=== PATIENT | male | born 1935 | race Caucasian/White ===

== ENCOUNTER 2016-06-02 12:07 | Day surgery (SDC) | payer OTHER, MEDICARE ==
[2016-06-02] MEDS ORDERED: NS 500 ML IV ONE (12:36)
[2016-06-02] MEDS ORDERED: MIDAZOLAM 2 MG/2 ML VIAL IVP ONE (12:36)
[2016-06-02] MEDS ORDERED: fentaNYL 100 MCG/2 ML INJ IVP ONE (12:36)
[2016-06-02] MEDS ORDERED: PROPOFOL 200 MG/20 ML VIAL IVP ONE (12:36)
--- NOTE | 2016-06-02 12:53 | CPEKG ---
Heart Rate: 78 RR Interval: 769 P-R Interval: 192 QRSD Interval: 162 QT Interval: 420 QTC Interval: 479 P [place]: 73 QRS [place]: -33 T Wave [place]: 124 EKG Severity - ABNORMAL ECG - EKG Impression: SINUS RHYTHM EKG Impression: LEFT BUNDLE BRANCH BLOCK Electronically Signed By: Anurag Grant 02-Jun-2016 19:36:47
== END 2016-06-02 14:04 | disposition home or self-care (01) ==
LOC: FIMAGING 12:07 → FCATH 14:04
PROVIDERS: ATTEND Internal Medicine Cardiovascular Disease
DX: I47.1 Supraventricular tachycardia (principal); Z53.8 Procedure and treatment not carried out for other reasons; R53.83 Other fatigue; R06.02 Shortness of breath; I25.10 Atherosclerotic heart disease of native coronary artery without angina pectoris; E78.5 Hyperlipidemia, unspecified; I44.7 Left bundle-branch block, unspecified; I48.92 Unspecified atrial flutter; J44.9 Chronic obstructive pulmonary disease, unspecified; I10 Essential (primary) hypertension; G47.33 Obstructive sleep apnea (adult) (pediatric); Z95.5 Presence of coronary angioplasty implant and graft; Z79.82 Long term (current) use of aspirin; Z79.1 Long term (current) use of non-steroidal anti-inflammatories (NSAID)

== ENCOUNTER → 2016-06-02 | Outpatient (CLI) | payer OTHER, MEDICARE | LOC: BHFA 11:15 | PROVIDERS: ATTEND Internal Medicine Interventional Cardiology | DX: I25.10 Atherosclerotic heart disease of native coronary artery without angina pectoris (principal); I10 Essential (primary) hypertension; I44.7 Left bundle-branch block, unspecified; I47.1 Supraventricular tachycardia ==

== ENCOUNTER 2016-06-18 14:31 | Inpatient (IN) | payer OTHER, MEDICARE ==
--- NOTE | 2016-06-18 14:45 | CPEKG ---
Heart Rate: 136 RR Interval: 441 QRSD Interval: 152 QT Interval: 372 QTC Interval: 560 QRS [place]: -50 T Wave [place]: 109 EKG Severity - ABNORMAL ECG - EKG Impression: A-FLUTTER/FIBRILLATION W/ COMPLETE AV BLOCK EKG Impression: LEFT BUNDLE BRANCH BLOCK Electronically Signed By: Zak Webster 18-Jun-2016 22:01:17
[2016-06-18] MEDS ORDERED: DILTIAZEM 25 MG/5 ML VIAL IVP ONE (14:52)
[2016-06-18] MEDS ORDERED: PROPOFOL 200 MG/20 ML VIAL ONE (14:58)
[2016-06-18 15:00] LABS: % IMMATURE GRANULYOCYTES 0.2 % (0.0-1.1); ABSOLUTE IMMATURE GRANULOCYTES 0.02 10^3/uL (0.00-0.10); ADD DIFF? NO; ADD MORPH? NO; ADD SCAN? NO; ATYPICAL LYMPHOCYTE FLAG 10 (0-99); FRAGMENT RBC FLAG 0 (0-99); HEMATOCRIT 52.8 % (40.0-51.0); HEMOGLOBIN 18.5 g/dL (13.7-17.5); LEFT SHIFT FLG 0 (0-99); LIPEMIA HEMOLYSIS FLAG 90 (0-99); MEAN CELL HEMOGLOBIN 32.2 pg (27.9-34.1); MEAN CELL VOLUME 91.8 fL (81.5-99.8); MEAN PLATELET VOLUME 9.2 fL (8.7-11.7); PLATELET CLUMPS FLAG 10 (0-99); PLATELET COUNT 167 10^3/uL (150-400); RED BLOOD CELL COUNT 5.75 10^6/uL (4.40-6.38); RED CELL DISTRIBUTION WIDTH 13.4 % (11.5-15.2)
[2016-06-18] MEDS ORDERED: KETAMINE 100 MG/10 ML SYR IVP ONE ×2 (15:02→15:53)
--- NOTE | 2016-06-18 15:12 | CPEKG ---
Heart Rate: 79 RR Interval: 759 P-R Interval: 180 QRSD Interval: 162 QT Interval: 440 QTC Interval: 505 P [place]: 61 QRS [place]: -39 T Wave [place]: 110 EKG Severity - ABNORMAL ECG - EKG Impression: SINUS RHYTHM EKG Impression: LEFT BUNDLE BRANCH BLOCK Electronically Signed By: Zak Webster 18-Jun-2016 22:01:17
[2016-06-18 15:14] LABS: INR 1.42 (0.83-1.16); PROTIME(PATIENT) 17.3 SEC (12.0-15.0)
[2016-06-18 15:15] LABS: APTT 35.5 SEC (23.0-38.0)
[2016-06-18] MEDS ORDERED: ADENOSINE 6 MG/2 ML VIAL ONE (15:17)
--- NOTE | 2016-06-18 15:19 | EDPHY ---
H & P Stated Complaint: irregular heartrate, scheduled for ablation with OZO Time Seen by Provider: 06/18/16 14:45 - Personal History Current Tetanus/Diphtheria Vaccine: Unsure Current Tetanus Diphtheria and Acellular Pertussis (TDAP): Unsure Tetanus Vaccine Date: unsure - Medical/Surgical History Hx Asthma: Yes Hx Chronic Respiratory Disease: No Hx Diabetes: No Hx Cardiac Disease: Yes Hx Renal Disease: No Hx Cirrhosis: No Hx Alcoholism: No Hx HIV/AIDS: No Hx Splenectomy or Spleen Trauma: No Other PMH: stents x4- mild emphysema- - Social History Smoking Status: Former smoker Constitutional: Initial Vital Signs Temperature (C) 36.7 C 06/18/16 14:36 Heart Rate 134 H 06/18/16 14:36 Respiratory Rate 15 06/18/16 14:36 Blood Pressure 109/73 06/18/16 14:36 O2 Sat (%) 92 06/18/16 14:36 O2 Delivery Mode [Post Room Air Procedure 1st] O2 Delivery Mode [Procedural Non-Rebreather Mask 4th] O2 Delivery Mode [Procedural Non-Rebreather Mask 3rd] O2 Delivery Mode [Procedural Non-Rebreather Mask 2nd] O2 Delivery Mode [Procedural Non-Rebreather Mask 1st] O2 Delivery Mode [.Immediate Non-Rebreather Mask Pre-Procedure] O2 Delivery Mode Nasal Cannula O2 (L/minute) [Post Procedure 15 1st] O2 (L/minute) [Procedural 4th] 15 O2 (L/minute) [Procedural 3rd] 15 O2 (L/minute) [Procedural 2nd] 15 O2 (L/minute) [Procedural 1st] 15 O2 (L/minute) [.Immediate Pre- 15 Procedure] O2 (L/minute) 2 Allergies/Adverse Reactions: No Known Allergies Allergy (Verified 06/18/16 14:36) Home Medications: Medication Instructions Recorded Rosuvastatin Calcium [Crestor 20mg 20 mg PO HS 10/27/11 (RX)] Zolpidem Tartrate [Ambien 10 mg] 2.5 - 5 mg PO HS 10/27/11 Metoprolol Succinate 25 mg PO DAILY06 12/10/12 Apixaban [Eliquis] 5 mg PO BID 10/14/15 Aspirin [Aspirin 81mg (*)] 81 mg PO DAILY 11/22/15 Mirtazapine [Remeron] 15 mg PO HS 06/02/16 Omeprazole [Prilosec 20 mg] 20 mg PO DAILY 06/02/16 Metoprolol Succinate [Metoprolol 12.5 mg PO HS 06/18/16 Succinate] Medical Decision Making ED Course/Re-evaluation: CHIEF COMPLAINT: Chest pain, dyspnea, rapid heart rate HISTORY OF PRESENT ILLNESS: The patient is an 81 y/o male arriving with his complaining of chest pain, dyspnea, and sensation of rapid heart rate beginning sometime this morning. He has a history of CAD, LBBB, paroxysmal atrial fibrillation and flutter and has experienced these episodes previously. He is scheduled for an ablation with Dr. Patton on 06/26/16, 8 days from now. His chest pain is located in his anterior left chest and associated with radiating right shoulder pain and exertional shortness of breath. REVIEW OF SYSTEMS: A 10 point review of systems was performed and is negative with the exception of the elements mentioned in the history of present illness. PHYSICAL EXAM: General Appearance: Alert, well hydrated, appropriate, and non-toxic appearing. Head: Atraumatic without scalp tenderness or obvious injury Eyes: Pupils equal, round, reactive to light and accommodation, EOMI, no trauma , no injection. Ears: Clear bilaterally, no perforation, normal landmarks Nose: Atraumatic, no rhinorrhea, clear. Throat: There is no erythema or exudates, no lesions, normal tonsils, mucus membranes moist. Neck: Supple, 2+ carotid upstroke, non-tender, no lymphadenopathy. Respiratory: No retractions, no distress, no wheezes, and no accessory muscle use. Lungs are clear to auscultation bilaterally. Cardiovascular: Tachycardic rate and rhythm, no murmurs, rubs, or gallops. Bilateral carotid, radial, dorsalis pedis, and posterior tibial pulses intact. Good capillary refill all extremities. Gastrointestinal: Abdomen is soft, non-tender, non-distended, no masses, no rebound, no guarding, no peritoneal signs. Musculoskeletal: Normal active ROM of all extremities, atraumatic. Neurological: Alert, appropriate, and interactive. The patient has normal DTRs and non-focal cranial nerves, motor, sensory, and cerebellar exam. Skin: No rashes, good turgor, no nodules on palpation. PAST MEDICAL HISTORY: CAD, LBBB, paroxysmal atrial fibrillation and atrial flutter, COPD, hyperlipidemia Meds include: metoprolol, digoxin, Eliquis PAST SURGICAL HISTORY: Scheduled for ablation on 06/26/[address] Patton, resection of bladder tumor via TURP SOCIAL HISTORY: at bedside. Veterinarian: Dr. Grant Prior medical records reviewed including ED visit 07/23/14 for similar symptoms. DIAGNOSTICS/PROCEDURES/CRITICAL CARE TIME: 1443: The 12 lead EKG was interpreted by myself. EKG shows atrial flutter with LBBB rate 136. See hard copy and/or "tracemaster" electronic copy for interpretation. Procedure: Conscious sedation. Indication: Cardioversion The patient is an appropriate candidate to tolerate procedural sedation. The patient's vitals signs and mental status are appropriate. The risks, benefits and alternatives of the sedation were discussed with the patient. The patient is ASA classification 1. The patient's Mallampati airway score was 1 and the patient did meet the 3-3-2 airway measurements. A time out was completed. The patient was sedated with 30mg IV Propofol and 30mg IV Ketamine. The patient was monitored with continuous pulse oximetry, angiography nurse and end tidal CO2. There were no complications and no significant hypoxemia. I performed both the sedation and the procedure. The total time I spent at the bedside during the procedural sedation was 20 minutes. The patient was examined after the procedural sedation and has returned to their pre-sedation baseline with normal vital signs and a normal examination. Procedure: Electrical Cardioversion. Indication: Unstable tachydysrhythmia. Risks, benefits, alternatives discussed with the patient and consent obtained. The patient was on a continuous eight section blower, with airway equipment at the bedside. The patient was on continuous pulse oximetry and passive CO2 monitor. The cardioversion was performed with 150 joules biphasic current. The cardioversion was initially successful, but patient later returned to rapid rhythm. The patient tolerated the procedure well with no complications. The procedure was performed by myself. 1511: The post conversion 12 lead EKG was interpreted by myself. Sinus rhythm rate 79 with LBBB. Similar compared to EKG dated 06/02/2016. See hard copy and/ or "tracemaster" electronic copy for interpretation. 1516: The 12 lead EKG was interpreted by myself. EKG shows wide complex tachycardia rate around 123. LBBB. See hard copy and/or "tracemaster" electronic copy for interpretation. Procedure: Electrical Cardioversion. Indication: Unstable tachydysrhythmia. Risks, benefits, alternatives discussed with the patient and consent obtained. The patient was on a continuous eight section blower, with airway equipment at the bedside. The patient was on continuous pulse oximetry and passive CO2 monitor. The cardioversion was performed with 150 joules biphasic current. The cardioversion was was initially successful, but patient later returned to rapid rhythm. The patient tolerated the procedure well with no complications. The procedure was performed by myself. 1519: The post conversion 12 lead EKG was interpreted by myself. Sinus rhythm rate 71. See hard copy and/or "tracemaster" electronic copy for interpretation. 1520: The 12 lead EKG was interpreted by myself. Atrial flutter rate 124 with LBBB. See hard copy and/or "tracemaster" electronic copy for interpretation. 1527: The 12 lead EKG was interpreted by myself. Sinus rhythm rate 66 with LBBB. See hard copy and/or "tracemaster" electronic copy for interpretation. I spent a total of 90 minutes of critical care time including but not limited to obtaining history, performing a physical exam, ordering interventions and the bedside monitoring of those interventions, collecting and interpreting tests and discussion with consultants but not including time spent performing procedures. DIFFERENTIAL DIAGNOSIS: The differential diagnosis for the patient's chest pain included but was not limited to unstable tachydysrhythmia, myocardial ischemia, pulmonary embolus, chest wall pain, pleural inflammation, and pulmonary infectious causes. MEDICAL DECISION MAKING: This is an 81 y/o male with an extensive cardiac history who presents with chest pain that radiates to his right shoulder, dyspnea, and rapid atrial flutter. He is scheduled for an ablation on 06/26/[address] Patton. He has a tachycardic rate on exam, but otherwise exam is unremarkable. Vitals on initial assessment: BP 90/50, HR 135. Due to continued symptoms and hypotension, he meets urgent cardioversion criteria with unstable tachydysrhythmia. Plan for conscious sedation and cardioversion. Will consult cardiology first. IV established. Labs drawn including CBC, CHEM, troponin, Mg, PTPTT. 1L IV NS administered. 1456: Consulted with Dr. Grant, patient's tung nut grower. He reports patient is on anticoagulation and agrees with my plan to cardiovert him now. The patient continues to have chest pain. 1504: BP 90/70. Continues to be symptomatic. 1507: 30mg IV Propofol and 30mg IV Ketamine administered for conscious sedation. 1508: Patient cardioverted with 150 joules biphasic synchronized current. 1509: 5mg IV Diltazem administered. HR in 80s. BP 117/81. 1511: Post conversion EKG shows sinus rhythm 79 with LBBB. 1514: Updated Dr. Grant on patient's condition. 1516: Patient returned to rapid rhythm rate 125, more narrow than previous tachycardia. BP now 73/43. 1518: Second cardioversion at 150 joules. HR 67. BP 109/70. 1520: Rate returned to 124. Plan for 150mg IV amiodarone. Dr. Grant updated. 1525: Will prepare for second conscious sedation in preparation for third cardioversion. 1526: Patient converted to sinus rhythm rate 71 with his baseline LBBB following amiodarone administration. BP around the 110s systolic. Third cardioversion and sedation deferred at this time. Dr. Grant paged. Patient will be placed on atrial fibrillation amiodarone drip protocol. 1535: Patient is awake and alert. His chest pain, dyspnea, and shoulder pain have resolved. Electrolytes including Mg are WNL. Troponin and BNP pending. 1540: BNP elevated at 1460. 1544: Spoke with Dr. Enrique, hospitalist. He accepts admission. 1555: Consulted with Dr. Peña, cardiology. He is in agreement with plan for admission. He will have Dr. Patton consult on patient tomorrow. - Data Points Laboratory Results: Laboratory Results 06/18/16 14:48 06/18/16 14:48 06/18/16 14:48 WBC 8.05 10^3/uL (3.80-9.50) RBC 5.75 10^6/uL (4.40-6.38) Hgb 18.5 H g/dL (13.7-17.5) Hct 52.8 H % (40.0-51.0) MCV 91.8 fL (81.5-99.8) MCH 32.2 pg (27.9-34.1) MCHC 35.0 g/dL (32.4-36.7) RDW 13.4 % (11.5-15.2) Plt Count 167 10^3/uL (150-400) MPV 9.2 fL (8.7-11.7) Neut % (Auto) 59.6 % (39.3-74.2) Lymph % (Auto) 30.1 % (15.0-45.0) [place] % (Auto) 7.0 % (4.5-13.0) Eos % (Auto) 2.1 % (0.6-7.6) Baso % (Auto) 1.0 % (0.3-1.7) Nucleat RBC Rel Count 0.0 % (0.0-0.2) Absolute Neuts (auto) 4.80 10^3/uL (1.70-6.50) Absolute Lymphs (auto) 2.42 10^3/uL (1.00-3.00) Absolute Monos (auto) 0.56 10^3/uL (0.30-0.80) Absolute Eos (auto) 0.17 10^3/uL (0.03-0.40) Absolute Basos (auto) 0.08 10^3/uL (0.02-0.10) Absolute Nucleated RBC 0.00 10^3/uL (0-0.01) Immature Gran % 0.2 % (0.0-1.1) Immature Gran # 0.02 10^3/uL (0.00-0.10) PT 17.3 H SEC (12.0-15.0) INR 1.42 H (0.83-1.16) APTT 35.5 SEC (23.0-38.0) Sodium 146 H mEq/L (134-144) Potassium 4.6 mEq/L (3.5-5.2) Chloride 105 mEq/L (97-110) Carbon Dioxide 28 mEq/l (22-31) Anion Gap 13 mEq/L (8-16) BUN 23 mg/dL (7-23) Creatinine 1.3 mg/dL (0.7-1.3) Estimated GFR 53 Glucose 130 H mg/dL (70-100) Calcium 9.8 mg/dL (8.5-10.4) Magnesium 2.1 mg/dL (1.6-2.3) Troponin I 0.013 ng/mL (0-0.034) NT-Pro-B Natriuret Pep 1460 H pg/mL (0-450) Medications Given: Discontinued Medications Diltiazem HCl (Cardizem 25 Mg/5 Ml Vial) 10 mg IVP EDNOW ONE Stop: 06/18/16 14:53 Last Admin: 06/18/16 15:15 Dose: 5 mg Amiodarone HCl (Amiodarone Hcl) 100 mls @ 600 mls/hr IV ONCE ONE Stop: 06/18/16 16:09 Last Admin: 06/18/16 16:13 Dose: Not Given Amiodarone HCl (Amiodarone Hcl) 100 mls @ 600 mls/hr IV EDNOW ONE Stop: 06/18/16 16:02 Last Admin: 06/18/16 15:20 Dose: 100 mls Sodium Chloride (Ns) 1,000 mls @ 0 mls/hr IV ONCE ONE PRN Reason: Wide Open Stop: 06/18/16 15:56 Last Admin: 06/18/16 15:02 Dose: 1,000 mls Ketamine HCl (Ketamine) 30 mg IVP EDNOW ONE Stop: 06/18/16 15:54 Last Admin: 06/18/16 15:02 Dose: 30 mg Propofol (Diprivan) 30 mg IVP EDNOW ONE Stop: 06/18/16 15:54 Last Admin: 06/18/16 15:02 Dose: 30 mg Departure - Departure Disposition: [facility] Inpatient Acute Clinical Impression: Chest pain, unstable dysrhythmia, Paroxysmal atrial flutter, Encounter for cardioversion procedure Condition: Fair Report Scribed for: Zak Webster Report Scribed by: Marta Lindsey Date of Report: 06/18/16 Time of Report: 15:24
--- NOTE | 2016-06-18 15:19 | CPEKG ---
Heart Rate: 123 RR Interval: 488 QRSD Interval: 156 QT Interval: 396 QTC Interval: 567 QRS [place]: -45 T Wave [place]: 109 EKG Severity - ABNORMAL ECG - EKG Impression: WIDE COMPLEX TACHYCARDIA EKG Impression: LEFT BUNDLE BRANCH BLOCK Electronically Signed By: Zak Webster 18-Jun-2016 22:01:17
[2016-06-18] MEDS ORDERED: AMIODARONE HCL 150 MG/100 ML BAG (1.5 MG/ML) IV ONE (15:21)
[2016-06-18] MEDS ORDERED: AMIODARONE HCL 150 MG/3 ML VIAL ONE (15:22)
[2016-06-18 15:24] LABS: ANION GAP 13 mEq/L (8-16); CALCIUM 9.8 mg/dL (8.5-10.4); CARBON DIOXIDE 28 mEq/l (22-31); CHLORIDE 105 mEq/L (97-110); CREATININE 1.3 mg/dL (0.7-1.3); GLOMERULAR FILTRATION RATE 53; GLUCOSE 130 mg/dL (70-100); MAGNESIUM 2.1 mg/dL (1.6-2.3); POTASSIUM 4.6 mEq/L (3.5-5.2); SODIUM 146 mEq/L (134-144)
--- NOTE | 2016-06-18 15:30 | CPEKG ---
Heart Rate: 71 RR Interval: 845 P-R Interval: 212 QRSD Interval: 170 QT Interval: 436 QTC Interval: 474 P [place]: 66 QRS [place]: -38 T Wave [place]: 122 EKG Severity - ABNORMAL ECG - EKG Impression: SINUS RHYTHM EKG Impression: LEFT BUNDLE BRANCH BLOCK Electronically Signed By: Zak Webster 18-Jun-2016 22:01:17
--- NOTE | 2016-06-18 15:31 | CPEKG ---
Heart Rate: 124 RR Interval: 484 QRSD Interval: 158 QT Interval: 396 QTC Interval: 569 QRS [place]: -41 T Wave [place]: 108 EKG Severity - ABNORMAL ECG - EKG Impression: A-FLUTTER/FIBRILLATION W/ COMPLETE AV BLOCK EKG Impression: LEFT BUNDLE BRANCH BLOCK Electronically Signed By: Zak Webster 18-Jun-2016 22:01:17
--- NOTE | 2016-06-18 15:33 | CPEKG ---
Heart Rate: 70 RR Interval: 857 P-R Interval: 224 QRSD Interval: 168 QT Interval: 428 QTC Interval: 462 P [place]: 22 QRS [place]: -44 T Wave [place]: 119 EKG Severity - ABNORMAL ECG - EKG Impression: SINUS RHYTHM EKG Impression: FIRST DEGREE AV BLOCK EKG Impression: LEFT BUNDLE BRANCH BLOCK Electronically Signed By: Zak Webster 18-Jun-2016 22:01:17
[2016-06-18 15:35] LABS: TROPONIN I 0.013 ng/mL (0-0.034)
[2016-06-18] MEDS ORDERED: PROPOFOL 200 MG/20 ML VIAL IVP ONE (15:53)
[2016-06-18] MEDS ORDERED: AMIODARONE HCL 100 ML IV ONE (15:53)
[2016-06-18] MEDS ORDERED: NS 1,000 ML IV ONE (15:55)
[2016-06-18] MEDS ORDERED: AMIODARONE A.FIB-6HR INFSN (ORDER 2/3) IV ONE (16:00)
[2016-06-18] MEDS ORDERED: AMIODARONE HCL 200 ML IV ONE (16:00)
[2016-06-18] MEDS ORDERED: AMIODARONE A.FIB-LOAD DOSE(ORDER 1/3) IV ONE (16:00)
[2016-06-18] MEDS ORDERED: ONDANSETRON 4 MG/2 ML VIAL IVP PRN (17:48)
[2016-06-18] MEDS ORDERED: ACETAMINOPHEN 325 MG TAB PO PRN (17:48)
[2016-06-18] MEDS ORDERED: ONDANSETRON DISINTEGRATING 4 MG TAB PO PRN (17:48)
--- NOTE | 2016-06-18 18:17 | GHP ---
[f rep st] HISTORY AND PHYSICAL DATE OF ADMISSION: 06/18/2016 CHIEF COMPLAINT: Tachycardia and known atrial fibrillation. HISTORY OF PRESENT ILLNESS: This is an 81-year-old male with a known history of paroxysmal atrial fi brillation. He is actually scheduled for an ablation next week. He usually sees Dr. Grant as his [facility] tie man. He presented to the emergency department today with heart beats and tachycardia. This was starting this morning. He was also having some chest pain and in his right sh oulder. He has also had some shortness of breath. In the emergency department his heart rate was in the 130s, in the 60s. In discussion with cardiology, he was cardioverted. He required a couple shocks. He then was given amiodarone. He has been on anticoagulation. Currently patient is feeling well. His right shoulder pain is now resolved. He denies any chest pain or shortness of br eath. REVIEW OF SYSTEMS: A 10-point review of systems was obtained and negative. PAST MEDICAL HISTORY: 1. Coronary artery disease, status post a couple of stents. 2. Paroxysmal atrial fibrillation, as above. 3. Chronic obstructive pulmonary disease. 4. History of left bundle branch block. 5. Hypertension. 6. Obstructive sleep apnea. MEDICATIONS: Reviewed. SOCIAL HISTORY: No smoking or alcohol. FAMILY HISTORY: Both parents are . PHYSICAL EXAM: VITAL SIGNS: Afebrile, blood pressure is 112/71, heart rate 62, oxygen saturation 95 % on room air. GENERAL: The patient is well developed, no apparent distress. HEENT: Nonicteric sc lerae. Extraocular movements intact. Moist mucous membranes. NECK: Supple. No thyromegaly. LUNG S: Good effort. Clear to auscultation bilaterally. CARDIOVASCULAR: Regular rate and rhythm. No m urmurs, gallops. ABDOMEN: Positive bowel sounds, soft, nontender, nondistended, no hepatosplenomega ly. EXTREMITIES: No clubbing, cyanosis, or edema. Skin: Without rash, dry and intact. NEUROLOGIC : Alert and oriented x3. Moving all 4 extremities equally. PSYCH: Normal mood and affect. LABS: CBC is normal although hemoglobin is high at 18. Sodium 146, potassium 4.6, creatinine 1.3. Troponin 0.013 prior to his cardioversion. EKG personally reviewed and interpreted. Initial one gulshan wed atrial flutter with a heart rate of 136. EKG done after ablations showed left branch block and a normal sinus rhythm. ASSESSMENT: An 81-year-old male with a history of paroxysmal atrial fibrillation whose symptoms were uncontrolled prior, scheduled for ablation, presenting with unstable atrial fibrillation status post cardioversion in the emergency department. 1. Paroxysmal atrial fibrillation. Patient continues on statins. We will continue with amiodarone drip. Make the patient n.p.o. after midnight for possible ablation. 2. History of coronary artery disease. This appears stable. 3. Chronic obstructive pulmonary disease. The patient's hemoglobin is a little bit high and I wonde r if there may be an element of untreated other obstructive sleep apnea or chronic obstructive pulmon meenakshi disease. We will defer this to his primary doctor. /[id number]/MODL
[2016-06-18] MEDS: MIRTAZAPINE 15 MG TAB PO SCH (20:23)
[2016-06-18] MEDS: ROSUVASTATIN CALCIUM 20 MG TAB PO SCH (20:23)
[2016-06-18] MEDS: APIXABAN 5 MG TAB PO SCH (20:23)
[2016-06-18] MEDS: METOPROLOL SUCCINATE XR 25 MG TAB PO SCH (20:23)
[2016-06-18] MEDS ORDERED: AMIODARONE A.FIB-18HR INFSN (ORDER 3/3) IV ONE (22:00)
[2016-06-18] MEDS ORDERED: AMIODARONE HCL 540 MG in D5W 300 ML IV ONE (22:00)
[2016-06-18] MEDS: ZOLPIDEM TARTRATE 5 MG TAB PO SCH (22:00)
[2016-06-19 05:57] LABS: % IMMATURE GRANULYOCYTES 0.5 % (0.0-1.1); ABSOLUTE IMMATURE GRANULOCYTES 0.03 10^3/uL (0.00-0.10); ADD DIFF? NO; ADD MORPH? NO; ADD SCAN? NO; ATYPICAL LYMPHOCYTE FLAG 0 (0-99); FRAGMENT RBC FLAG 0 (0-99); HEMATOCRIT 43.9 % (40.0-51.0); HEMOGLOBIN 14.7 g/dL (13.7-17.5); LEFT SHIFT FLG 0 (0-99); LIPEMIA HEMOLYSIS FLAG 80 (0-99); MEAN CELL HEMOGLOBIN 31.1 pg (27.9-34.1); MEAN CELL HEMOGLOBIN CONCENTR. 33.5 g/dL (32.4-36.7); MEAN CELL VOLUME 92.8 fL (81.5-99.8); MEAN PLATELET VOLUME 9.5 fL (8.7-11.7); PLATELET CLUMPS FLAG 10 (0-99); PLATELET COUNT 119 10^3/uL (150-400); RED BLOOD CELL COUNT 4.73 10^6/uL (4.40-6.38); RED CELL DISTRIBUTION WIDTH 13.6 % (11.5-15.2)
[2016-06-19 06:01] LABS: ALANINE AMINOTRANSFERASE 31 IU/L (21-72); ALBUMIN 3.3 g/dL (3.5-5.0); ALKALINE PHOSPHATASE 57 IU/L (38-126); ANION GAP 7 mEq/L (8-16); ASPARTATE AMINOTRANSFERASE 28 IU/L (17-59); BILIRUBIN,TOTAL 0.7 mg/dL (0.1-1.4); CALCIUM 8.8 mg/dL (8.5-10.4); CARBON DIOXIDE 24 mEq/l (22-31); CHLORIDE 110 mEq/L (97-110); CREATININE 1.2 mg/dL (0.7-1.3); GLOMERULAR FILTRATION RATE 58; GLUCOSE 105 mg/dL (70-100); MAGNESIUM 2.1 mg/dL (1.6-2.3); POTASSIUM 4.2 mEq/L (3.5-5.2); SODIUM 141 mEq/L (134-144); TOTAL PROTEIN 6.6 g/dL (6.3-8.2)
[2016-06-19] MEDS: METOPROLOL SUCCINATE XR 25 MG TAB PO SCH ×2 (06:54→20:50)
[2016-06-19] MEDS: APIXABAN 5 MG TAB PO SCH (10:53)
--- NOTE | 2016-06-19 10:59 | ECHO ---
[id number] + + [id number] : : [place] [address] : : [phone] + + Adult Echocardiographic Report + + :Name: BRIANNE BROWN BStudy Date: 06/19/2016 09:57 AM : : Hospital Admission Number: [id number] : :: 1935 Gender: Male Height: 70 in : :Age: 81 yrs Race: WH Weight: 171 lb : :Reason For Study: Eval LV Fx : : BSA: 2.0 meters2: :History: Unstable angina, New onset A-Fib/flutter. : + + MMode/2D Measurements & Calculations IVSd: 0.94 cm LVIDd: 4.6 cm FS: 21.2 % Ao root diam: LVPWd: 1.1 cm LVIDs: 3.6 cm EDV(Teich): 98.0 ml 3.3 cm ESV(Teich): 55.7 ml ACS: 1.5 cm EF(Teich): 43.1 % LA dimension: 3.6 cm LVOT diam: 2.1 cmLVLd ap4: 7.2 cm SV(MOD-sp4): LA A4 area: LVOT area: EDV(MOD-sp4): 40.0 ml 23.3 cm2 3.5 cm2 75.0 ml LVLs ap4: 6.9 cm ESV(MOD-sp4): 35.0 ml EF(MOD-sp4): 53.3 % Normal Measurement Values: + + :LVIDd (3.5-5.7cm) IVSd (0.6-1.1cm) LVPWd (0.6-1.1cm) Aortic Root (2.0-3.7cm)Left Atrium (1.5-4.0cm): :LV Vol(d) (76-115ml) LV Vol(s) (29-48ml) Ejec Fraction (50-65%)PV Shmuel (0.6- 1.2m/s) TV Shmuel (0.4-1.0m/s) : :MV E Shmuel (0.8-1.0m/s)MV A Shmuel (0.3-1.0m/s)LVOT Shmuel (0.7-1.2m/s) Asc Ao Shmuel ( 0.9-1.8m/s) : + + Doppler Measurements & Calculations MV E max shmuel: Ao mean P.9 mmHgLV V1 max: SV(LVOT): 44.9 cm/sec Ao V2 mean: 73.1 cm/sec 56.8 ml MV A max shmuel: 94.4 cm/sec LV V1 max P.2 cm/sec Ao V2 VTI: 26.2 cm 2.1 mmHg MV E/A: 0.73 ARMIN(I,D): 2.2 cm2 LV V1 mean P.2 mmHg LV V1 mean: 50.7 cm/sec LV V1 VTI: 16.4 cm PA V2 max: TR max shmuel: 115.4 cm/sec 247.0 cm/sec PA max P.3 mmHg TR max P.4 mmHg RAP systole: 5.0 mmHg RVSP(TR): 29.4 mmHg Left Ventricle The left ventricle is normal in size. There is normal left ventricular wall thickness. Ejection Fraction = 30-35%. There is Doppler evidence for diastolic dysfunction. There is mid inferoseptal to apical septal dyskinesis, there is basilar anterolateral and basilar inferolateral. Right Ventricle The right ventricle is normal in size and function. Atria The left atrium is mildly dilated. Right atrial size is normal. Mitral Valve The mitral valve is normal in structure and function. There is no evidence of mitral valve prolapse. There is no mitral valve stenosis. There is no mitral regurgitation noted. Tricuspid Valve There is trace tricuspid regurgitation. Right ventricular systolic pressure is normal. Aortic Valve The aortic valve opens well. There is no aortic stenosis. Mild aortic regurgitation. Pulmonic Valve The pulmonic valve is normal in structure and function. There is no pulmonic valvular regurgitation. Great Vessels The aortic root is normal size. Pericardium/Pleural There is no pericardial effusion. Conclusion A complete two-dimensional transthoracic echocardiogram was performed (2D, M-mode, Doppler and color flow Doppler). Ejection Fraction = 30-35%. There is Doppler evidence for diastolic dysfunction. There is mid inferoseptal to apical septal dyskinesis, there is basilar anterolateral and basilar inferolateral. The right ventricle is normal in size and function. The left atrium is mildly dilated. Right atrial size is normal. The mitral valve is normal in structure and function. There is trace tricuspid regurgitation. Right ventricular systolic pressure is normal. Mild aortic regurgitation. There is no pericardial effusion. Final Reading Physician: Ally Olguin signed on 06/19/2016 10:59 AM Ordering Physician: Terry Bush Performed By: Adama Hernández, JULIAN
[2016-06-19] MEDS ORDERED: TEMAZEPAM 15 MG CAP PO PRN (11:00)
[2016-06-19] MEDS: PANTOPRAZOLE SODIUM 40 MG TAB PO SCH (11:20)
[2016-06-19] MEDS: ASPIRIN 81 MG CHEWABLE TAB PO SCH (11:20)
[2016-06-19] MEDS: ENOXAPARIN 80 MG/0.8 ML SYR SC SCH ×2 (11:20→20:49)
--- NOTE | 2016-06-19 12:44 | GCON ---
[f rep st] CONSULTATION CARDIOLOGY CONSULTATION REASON FOR CONSULTATION: Atrial flutter with rapid ventricular response requiring cardioversion in the emergency department. HISTORY OF PRESENT ILLNESS: The patient has a long cardiac history, including coronary artery disease, with previous PCI in 1999 and 2005, most recent with PCI of the circumflex, ischemic cardiomyopathy with known ejection fraction of 45% based off the most recent echocardiogram in January 2011, COPD, hypertension, hyperlipidemia, left bundle branch block, obstructive sleep apnea , and more recently having runs of paroxysmal supraventricular tachycardia, in which he was scheduled to undergo cardiac electrophysiology procedure with ablation on June 26, 2016. The patient is reporting yesterday afternoon, soon after walking, he noticed that his heart rate took off extremely fast, became somewhat short of breath, reporting mild chest pressure. He had recently been taken off his digoxin in preparation for his upcoming electrophysiology study. Due to these new symptoms, he became quite concerned, and came to the emergency department for further evaluation. Upon arrival, he was noted to have initial heart rate at around 135 beats per minute. He was noted to be mildly hypotensive with blood pressure of 90/50. Emergency department physician did call Dr. Grant, who is the patient's regular stair builder, and it was decided that the patient should go under urgent cardioversion. Initially, it was tried with 150 joules biphasic. Unfortunately , that did not convert the 1st time. The patient was given IV amiodarone, and by the 3rd cardioversion, the patient was able to be converted back to sinus rhythm. He was placed up on the telemetry overnight, on an IV amiodarone drip. He has been noted to remain in sinus rhythm with occasional premature ventricular contractions. He reports he has had no further episodes of chest pain or pressure. His initial electrocardiogram upon emergency department admission showed atrial flutter with RVR. The patient reports prior 2 episodes. He has been in his normal state health. He has been prepping to go for his electrophysiology procedure, with medication changes as mentioned above , he denies of any recent fevers, chills, or night sweats. He has not noticed any significant decrease in exercise tolerance. It is noted that he was admitted to [facility] [address] [facility]. At that time, he was in SVT with RVR in which he was reporting chest pressure. By the time he arrived to the cardiovascular center, he had spontaneously converted back to sinus rhythm, requiring no cardioversion. It was noted that he was having chest pain at that time. Patient denies of any orthopnea, PND, edema, near-syncope, but lightheadedness with episodes. Denies of any symptoms suggestive of TIA or CVA. Denies any bleeding issues, is on chronic Eliquis. It has been noted off his medical records that his last echocardiogram in which only the ejection fraction was noted, was 45%, and that was January 2011. The patient's most recent nuclear stress test was done in February 2015, which noted that he had a small-sized moderate in intensity, fixed but partially reversible mid to distal deficit consistent with billy-infarct ischemia. His initial troponin in to the hospital was 0.013. His proBNP was 1460. PAST MEDICAL HISTORY: As mentioned above, CAD with previous PCI, most recent circumflex in 2010, hypertension, hyperlipidemia, paroxysmal atrial fibrillation , paroxysmal atrial flutter, paroxysmal supraventricular tachycardia, chronic obstructive pulmonary disease, long history of left bundle branch block. PAST SURGICAL HISTORY: Cardiac percutaneous coronary interventions, most recent 2010. FAMILY HISTORY: Patient reports no premature coronary artery disease. SOCIAL HISTORY: Patient is . He is a former smoker, he occasionally uses alcohol. Denies any illicit drug use. ALLERGIES: No known drug allergies. REVIEW OF SYSTEMS: A 10-point review of systems done on this patient all negative except as mentioned above. PHYSICAL EXAMINATION: GENERAL APPEARANCE: Medium built, well-groomed, male. He is alert and orientated to person, place, time, and situation. Appears to be under no acute distress. VITAL SIGNS: Currently, blood pressure 128/76, heart rate of 56, sinus bradycardia on the monitor, respirations 12, saturation 93% on room air, temperature 36.3 degrees Celsius. HEENT: Head is normocephalic. Lips and tongue are pink and moist with no signs of cyanosis, conjunctivae pink. NECK: Trachea is midline, +2 carotid pulses bilateral, no auscultated bruits, no jugular vein distention. ABDOMEN: Soft, nontender, bowel sounds x4 quadrants. No organomegaly and no palpable masses. SKIN: [place], warm, dry. No cyanosis, no clubbing. No peripheral edema. VASCULAR: +2 carotids bilateral, +2 radials bilateral. Noted normal Randall's test on right hand. +2 posterior tibial pulses bilateral. NEURO: Cranial nerves 2-12 grossly intact. MEDICATIONS: At home: 1. Metoprolol succinate 25 mg p.o. daily. 2. Aspirin 81 mg daily. 3. Eliquis 5 mg p.o. twice daily. 4. Remeron 15 mg p.o. at bedtime. 5. Metoprolol succinate 12.5 mg q.p.m. 6. Crestor 20 mg p.o. at bedtime. 7. Omeprazole 20 mg p.o. daily. 8. Ambien to 5 mg p.o. bedtime p.r.n. LABORATORY STUDIES: Current laboratory studies this morning showed WBC of 6.11 , hematocrit of 14.7, hematocrit 43.9, platelet count 119. Sodium 141, potassium 4.2, chloride 110, CO2 of 24, BUN 24, creatinine 1.2, glucose 105, calcium 8.8, magnesium 2.1, AST 28, ALT 31. Troponin on admission was 0.013, repeated troponin this morning was 0.120. ProBNP 1460. Total protein 6.6, albumin 3.3. Initial electrocardiogram appears to be atrial flutter with RVR with left bundle branch block. Electrocardiogram dated June 18, 2016 at 3:19 p.m. shows sinus rhythm with left bundle branch block. Echocardiogram done this morning shows EF of 30% to 35%. Evidence of diastolic dysfunction, mid inferior septal to apical septal dyskinesis with basilar anterior lateral and basilar inferior lateral akinesis. RV is normal size and function. LA is mildly dilated, trace TR, RVSP within normal limits, mild AI. ASSESSMENT AND PLAN: 1. Paroxysmal atrial flutter: Patient in paroxysmal atrial flutter last evening, noted to have chest pressure with hypotension. Three tempted cardioversions, which returned to spontaneous sinus rhythm with amiodarone loading. He has been on amiodarone drip, and continued on beta-blockers, has recently had his digoxin discontinued in preparation for electrophysiology study. I have spoken with Dr. Patton, he will see the patient later today, but potentially will need to hold off on doing EP procedure for 1 month post cardioversion due to not wanting to interrupt anticoagulation due to the risk of possible thrombotic event, especially within the first [address] cardio[address]. Per Dr. Patton's request, I have discontinued the amiodarone. We will continue him on current dose of beta-elida of metoprolol succinate. As for anticoagulation, he had been on his Eliquis. Patient will potentially need cardiac catheterization. Will discontinue Eliquis today, and start him on Lovenox at 1 mg/kg. 2. Coronary artery disease, with chest pressure: Patient was in atrial flutter with rapid ventricular response and 2 weeks ago went into PSVT, reporting episodes of midsternal chest pressure with radiation up to the right neck. He is known to have previous stents, initial troponin was negative, elevated troponin today questioning if this is due to cardiac, questioning elevated troponin to either cardiac ischemia or cardioversion. Echocardiogram showing wall motion abnormality with decreased ejection fraction from previous echocardiogram. Patient with known abnormal nuclear MPI study February 2015. After discussing with Dr. Robles and Dr. Patton, it is felt best that the patient be further evaluated for cardiac ischemia, will plan for him to undergo coronary catheterization. Due to him being on anticoagulation, we will hold his Eliquis today as mentioned above and start him on Lovenox with last dose tonight at 9:00 p.m., plan for cardiac catheterization tomorrow to be done by Dr. Robles via the right radial approach to help eliminate bleeding possibility as much as possible. Patient will continue on current anti-platelet therapy of aspirin. He has sublingual nitroglycerin to use. If he develops further chest pain at rest, would consider moving cardiac catheterization up to more of an urgent response. Continue him on current beta blockage as mentioned above. 3. Hypercholesterolemia: Patient noted history of coronary artery disease, currently on Crestor, will have him get a fasting lipid panel as stated above. 4. Ischemic cardiomyopathy: Recent echocardiogram showing ejection fraction 30 % to 35%. This is down from previous echocardiogram, with noted ejection fraction of 45%. Continue him on metoprolol succinate, potentially patient should be started on MILADIS inhibitor, but will hold off at this time due to recent episode of hypotension with atrial fibrillation with rapid ventricular response, this could potentially be decided post catheterization or an outpatient setting. 5. Chronic obstructive pulmonary disease: Patient reports no shortness of breath, his oxygen saturation within normal limits. He is being followed also by Internal Medicine, Hospitalist Service. Thank you for this consultation. We will be glad to follow along with you. /[id number]/MODL MTDD
--- NOTE | 2016-06-19 17:20 | HOSPPROG ---
Hospitalist Progress Note Assessment/Plan: DIAGNOSIS: # Rapid atrial fibrillation recurrence, intermittent # Chest pain #Elevated cardiac troponin # New decrease in left ventricular ejection fraction on echocardiogram to 35% in addition to his atrial fibrillation are certainly concerned about the possibility of coronary artery disease be involved at this point. In addition as the patient has converted from AFib to normal sinus rhythm, Dr. Patton is concerned about taking him off of anticoagulation until he is anticoagulated for least another month. The plan therefore will be to proceed with coronary angiography and deal with his coronary issues if any, and keep him on anticoagulation and rate control and have him come back in for ablation in 1 month. I have reviewed his case in detail with Terry Bush and Julian Patton from Cardiology today SUBJECTIVE: patient feels much better today without any palpitations chest pain or shortness of breath OBJECTIVE Vitals reviewed: stable with no fever Exam: alert oriented skin warm dry color ok resps not labored lungs clear BSs heart regular abd soft nondistended nontender, bowel sounds present limbs warm, no edema iv site ok Objective: Vital Signs Temp Pulse Resp BP Pulse Ox 36.3 C 58 L 16 116/69 90 L 06/19/16 16:35 06/19/16 16:35 06/19/16 16:35 06/19/16 16:35 06/19/16 16:35 Laboratory Results 06/19/16 04:00 06/19/16 04:00 06/18/16 06/19/16 06/20/16 06:59 06:59 06:59 Intake Total 1616 240 Balance 1616 240 PT 17.3 SEC (12.0-15.0) H 06/18/16 14:48 INR 1.42 (0.83-1.16) H 06/18/16 14:48 ICD10 Worksheet Patient Problems: Problems Problem Status Diagnosed Chest pain Acute Encounter for cardioversion procedure Acute Paroxysmal atrial flutter Acute
[2016-06-19] MEDS: ROSUVASTATIN CALCIUM 20 MG TAB PO SCH (20:50)
[2016-06-19] MEDS: MIRTAZAPINE 15 MG TAB PO SCH (20:50)
[2016-06-19] MEDS: ZOLPIDEM TARTRATE 5 MG TAB PO SCH (21:42)
[2016-06-20] MEDS ORDERED: NS 1,000 ML IV ONE (06:00)
[2016-06-20] MEDS ORDERED: NITROGLYCERIN 0.4 MG BTL SL PRN (06:00)
[2016-06-20 06:19] LABS: ANION GAP 9 mEq/L (8-16); CALCIUM 8.8 mg/dL (8.5-10.4); CARBON DIOXIDE 24 mEq/l (22-31); CHLORIDE 111 mEq/L (97-110); CHOLESTEROL 119 mg/dL (140-220); CHOLESTEROL/HDL RATIO 4.58 RATIO (1.00-4.97); CREATININE 1.1 mg/dL (0.7-1.3); GLOMERULAR FILTRATION RATE > 60; GLUCOSE 113 mg/dL (70-100); HIGH DENSITY LIPOPROTEIN 26 mg/dL (40-65); LDL/HDL RATIO 1.62 RATIO (1.00-3.64); LOW DENSITY LIPOPROTEIN 42 mg/dL (80-100); MAGNESIUM 1.9 mg/dL (1.6-2.3); NON-HIGH DENSITY LIPOPROTEIN 93 mg/dL (90-129); POTASSIUM 4.3 mEq/L (3.5-5.2); SODIUM 144 mEq/L (134-144); TRIGLYCERIDE 257 mg/dL (40-150); VERY LOW DENSITY LIPOPROTEINS 51 mg/dL (8-25)
[2016-06-20 06:58] LABS: % IMMATURE GRANULYOCYTES 0.4 % (0.0-1.1); ABSOLUTE IMMATURE GRANULOCYTES 0.03 10^3/uL (0.00-0.10); ADD DIFF? NO; ADD MORPH? NO; ADD SCAN? NO; ATYPICAL LYMPHOCYTE FLAG 0 (0-99); FRAGMENT RBC FLAG 10 (0-99); HEMATOCRIT 44.7 % (40.0-51.0); HEMOGLOBIN 15.2 g/dL (13.7-17.5); LEFT SHIFT FLG 0 (0-99); LIPEMIA HEMOLYSIS FLAG 90 (0-99); MEAN CELL HEMOGLOBIN 31.4 pg (27.9-34.1); MEAN CELL VOLUME 92.4 fL (81.5-99.8); MEAN PLATELET VOLUME 9.5 fL (8.7-11.7); PLATELET CLUMPS FLAG 10 (0-99); PLATELET COUNT 138 10^3/uL (150-400); RED BLOOD CELL COUNT 4.84 10^6/uL (4.40-6.38); RED CELL DISTRIBUTION WIDTH 13.4 % (11.5-15.2)
[2016-06-20] MEDS: METOPROLOL SUCCINATE XR 25 MG TAB PO SCH ×2 (07:17→21:21)
[2016-06-20] MEDS ORDERED: diphenhydrAMINE 25 MG CAP PO ONE ×2 (08:00→11:01)
[2016-06-20] MEDS ORDERED: DIAZEPAM 5 MG TAB ONE (08:01)
[2016-06-20] MEDS ORDERED: FAMOTIDINE 20 MG TAB ONE (08:01)
[2016-06-20 08:07] LABS: APTT 38.3 SEC (23.0-38.0); INR 1.26 (0.83-1.16); PROTIME(PATIENT) 15.8 SEC (12.0-15.0)
[2016-06-20] MEDS ORDERED: LIDOCAINE 1% 30 ML SDV ONE (08:38)
[2016-06-20] MEDS ORDERED: fentaNYL 100 MCG/2 ML INJ ONE (08:38)
[2016-06-20] MEDS ORDERED: MIDAZOLAM 2 MG/2 ML VIAL ONE (08:38)
[2016-06-20] MEDS ORDERED: IOPAMIDOL (ISOVUE 370) 100 ML BTL IV ONE (08:40)
[2016-06-20] MEDS ORDERED: VERAPAMIL 5 MG/2 ML VIAL ONE (08:49)
[2016-06-20] MEDS ORDERED: HEPARIN 10,000 UNIT/10 ML MDV ONE (08:49)
--- NOTE | 2016-06-20 08:52 | SOAPPROG ---
ZAID Progress Note Assessment/Plan: Assessment: 1. Coronary artery disease 2. Left bundle-branch block 3.Supraventricular arrhythmia Plan: 81-year-old male who was scheduled for an ablation procedure next week for supraventricular tachycardia versus atrial flutter. I saw him yesterday, June 19. He presents with recurrent episodes, these have caused chest discomfort. He did undergo cardioversion x2, was placed on short-term amiodarone which has been discontinued. He had a mildly abnormal myocardial perfusion stress test last year. Now with anginal pain with tachycardia, further evaluation of coronary disease indicated. He will see my partner Dr. Cassius Robles and likely will need coronary angiography. I have discussed his case with the patient's rn social services Dr. Anurag Grant who agrees with this plan. We will plan on proceeding with his ablation next week. Given that he underwent a cardioversion this week, I do not want to take him off anticoagulation for extended periods, he will be placed on Lovenox 1 milligram/ kilogram subcu twice daily 12 hours after stopping his Eliquis. Last dose of Lovenox will be 12 hours prior to the procedure. He understands the risks of procedure. These were discussed with him in clinic previously. Metoprolol will be stopped 5 days prior to the procedure. Digoxin has already been discontinued. 06/20/16 08:49 Subjective: 81-year-old male, known to me from outpatient setting, presented with wide complex tachycardia which is consistent with either supraventricular tachycardia or atrial flutter with aberrant conduction to the ventricles. He has underlying left bundle branch block. Objective: Vital Signs Temp Pulse Resp BP Pulse Ox 36.4 C 61 16 133/72 H 92 06/19/16 23:14 06/20/16 07:23 06/20/16 07:23 06/20/16 07:23 06/20/16 07:23 Laboratory Results 06/20/16 03:55 06/20/16 03:55 06/18/16 06/19/16 06/20/16 11:59 11:59 11:59 Intake Total 1751 790 Balance 1751 790 PT 15.8 SEC (12.0-15.0) H 06/20/16 03:55 INR 1.26 (0.83-1.16) H 06/20/16 03:55 - Time Spent With Patient Time Spent With Patient: 40 minutes, more than 50% counseling. ICD10 Worksheet Patient Problems: Problems Problem Status Onset Chest pain Acute Paroxysmal atrial flutter Acute Encounter for cardioversion procedure Acute
[2016-06-20] MEDS ORDERED: ASPIRIN EC 325 MG TAB PO ONE (09:43)
[2016-06-20] MEDS ORDERED: DIAZEPAM 5 MG TAB PO ONE (11:01)
--- NOTE | 2016-06-20 11:14 | CPEKG ---
Heart Rate: 58 RR Interval: 1034 P-R Interval: 216 QRSD Interval: 170 QT Interval: 500 QTC Interval: 492 P [place]: 28 QRS [place]: -56 T Wave [place]: 96 EKG Severity - ABNORMAL ECG - EKG Impression: SINUS RHYTHM EKG Impression: LEFT BUNDLE BRANCH BLOCK Electronically Signed By: Julian Patton 20-Jun-2016 12:04:17
[2016-06-20] MEDS ORDERED: BIVALIRUDIN 250 MG/5 ML VIAL IV ONE (12:36)
[2016-06-20] MEDS ORDERED: CLOPIDOGREL BISULFATE 75 MG TAB ONE (12:57)
[2016-06-20] MEDS ORDERED: ATROPINE SULFATE 1 MG/10 ML SYR IVP PRN (13:30)
[2016-06-20] MEDS ORDERED: CLOPIDOGREL BISULFATE 75 MG TAB PO ONE (13:30)
[2016-06-20] MEDS: ASPIRIN 81 MG CHEWABLE TAB PO SCH (13:32)
[2016-06-20] MEDS: PANTOPRAZOLE SODIUM 40 MG TAB PO SCH (13:32)
--- NOTE | 2016-06-20 14:01 | CPEKG ---
Heart Rate: 54 RR Interval: 1111 P-R Interval: 220 QRSD Interval: 168 QT Interval: 512 QTC Interval: 486 P [place]: 72 QRS [place]: -58 T Wave [place]: 100 EKG Severity - ABNORMAL ECG - EKG Impression: SINUS RHYTHM EKG Impression: FIRST DEGREE AV BLOCK EKG Impression: PROBABLE LEFT ATRIAL ABNORMALITY EKG Impression: LEFT BUNDLE BRANCH BLOCK Electronically Signed By: Julian Patton 20-Jun-2016 19:04:33
--- NOTE | 2016-06-20 14:04 | CPIP ---
[f rep st] INVASIVE CARDIAC PROCEDURE DATE OF PROCEDURE: 06/20/2016 PROCEDURES: 1. Coronary angiography. 2. Left ventriculography. 3. Stenting of circumflex coronary artery with Synergy drug-eluting stent. INDICATION: 1. Known coronary artery disease, status post previous stenting of the left anterior descending cor onary artery and circumflex coronary arteries. 2. Chest pain in the setting of atrial fibrillation/atrial flutter concern concerning for angina. 3. Abnormal nuclear stress test with inferior perfusion defect that would be [id number] ri sk. ACCESS: Patient was prepped and draped in sterile fashion. 1% lidocaine was used to anesthetize th e right inguinal region. A 6-Polish introducer sheath was placed selectively into the right common femoral artery via modified Seldinger technique. CORONARY ANGIOGRAPHY: A 6-Polish JL4 was advanced to the left main coronary artery and images obtai dash. The left main coronary artery bifurcated into an LAD and circumflex coronary arteries. The di stal portion of the left main coronary artery had a 20% to 30% narrowing present. The left anterior descending coronary artery was stented in the proximal segment into the mid segment. In the proxim al segment prior to the stent, there was a single, discrete 30% stenosis present. Within the stent there was tifk-sg-yolodnpo in-stent restenosis with a 30% maximal stenosis in the mid stent. The re mainder of the vessel is free of any significant disease. The circumflex coronary artery was a large vessel. Circumflex coronary artery was previously stente d in the ijczvobp-yq-[id number] segment. The previously placed stents were widely patent, with no evidence of in-stent restenosis. Just prior to the proximal stent, there was a 75% to 80% stenosis present. This was eccentric and calcified. A 6-Polish JR4 was advanced to the right coronary artery and images obtained. The right coronary ar jessica had mild luminal regularities throughout. There was no stenosis greater than 25%. LEFT VENTRICULOGRAPHY: A 6-Polish pigtail catheter was advanced to the left ventricle and images ob tained. Left ventricle was normal in size with reduced systolic function. Estimated ejection fract ion was 45% to 50%. The inferior wall appeared to be hypokinetic. PERCUTANEOUS CORONARY INTERVENTION: In the circumflex artery, a 6-Polish JL4 was advanced to the le ft main coronary artery and images obtained. Angiography confirmed the presence of high-grade disea se involving the uuchpa-pp-gmmavypn portion of the circumflex coronary artery. A loose wire was kole sheryl in the distal vessel and position verified by angiography. The lesion was pre-dilated with a 2. 75 x 15 Emerge balloon. Followup angiography demonstrated significant residual stenosis. A 3.0 x 1 6 Synergy drug-eluting stent was then placed across the lesion and deployed. Followup angiography d emonstrated incomplete stent expansion. Stent was post dilated with a 3.0 x 8 noncompliant balloon. Followup angiography demonstrated MATILDA-3 flow. No residual stenosis. COMPLICATIONS: None. CONCLUSIONS: 1. Patent left anterior descending stents with approximately 30% in-stent restenosis in the mid ves lou. 2. Patent circumflex stents with no evidence of significant in-stent restenosis. 3. A 75% to 80% stenosis in the proximal portion of the circumflex coronary artery. 4. Status post successful stenting of the proximal circumflex coronary artery using a Synergy drug- eluting stent. /[id number]/MODL
--- NOTE | 2016-06-20 19:03 | HOSPPROG ---
Hospitalist Progress Note Assessment/Plan: DIAGNOSIS: # Rapid atrial fibrillation recurrence, intermittent # Unstable Angina pectoris, # L circumflex coronary artery stenosis; s/p drug eluting stent placement today # Elevated cardiac troponin # New decrease in left ventricular ejection fraction on echocardiogram to 35% PLANS: -observation overnight for stability and groin access assessment -continue rate control and anticoagulation -continue plavix, statin -ablation will likely be next week if stable SUBJECTIVE: seen after angio/stent no groin or foot pain no angina no sob still on leg precautions OBJECTIVE Vitals reviewed: stable with no fever Exam: alert oriented skin warm dry color ok resps not labored lungs clear BSs heart regular limbs groin and foot look good iv site ok Objective: Vital Signs Temp Pulse Resp BP Pulse Ox 36.3 C 53 L 20 106/84 H 91 L 06/20/16 16:45 06/20/16 18:00 06/20/16 16:45 06/20/16 18:00 06/20/16 16:45 Laboratory Results 06/20/16 03:55 06/20/16 03:55 06/19/16 06/20/16 06/21/16 06:59 06:59 06:59 Intake Total 1751 790 100 Balance 1751 790 100 PT 15.8 SEC (12.0-15.0) H 06/20/16 03:55 INR 1.26 (0.83-1.16) H 06/20/16 03:55 ICD10 Worksheet Patient Problems: Problems Problem Status Onset Chest pain Acute Encounter for cardioversion procedure Acute Paroxysmal atrial flutter Acute
[2016-06-20] MEDS: ZOLPIDEM TARTRATE 5 MG TAB PO SCH (21:21)
[2016-06-20] MEDS: MIRTAZAPINE 15 MG TAB PO SCH (21:21)
[2016-06-20] MEDS: ROSUVASTATIN CALCIUM 20 MG TAB PO SCH (21:22)
[2016-06-21 05:10] LABS: % IMMATURE GRANULYOCYTES 0.4 % (0.0-1.1); ABSOLUTE IMMATURE GRANULOCYTES 0.03 10^3/uL (0.00-0.10); ADD DIFF? NO; ADD MORPH? NO; ADD SCAN? NO; ATYPICAL LYMPHOCYTE FLAG 0 (0-99); FRAGMENT RBC FLAG 0 (0-99); HEMATOCRIT 45.9 % (40.0-51.0); HEMOGLOBIN 15.7 g/dL (13.7-17.5); LEFT SHIFT FLG 0 (0-99); LIPEMIA HEMOLYSIS FLAG 90 (0-99); MEAN CELL HEMOGLOBIN 31.4 pg (27.9-34.1); MEAN CELL HEMOGLOBIN CONCENTR. 34.2 g/dL (32.4-36.7); MEAN CELL VOLUME 91.8 fL (81.5-99.8); MEAN PLATELET VOLUME 9.3 fL (8.7-11.7); PLATELET CLUMPS FLAG 0 (0-99); PLATELET COUNT 107 10^3/uL (150-400); RED CELL DISTRIBUTION WIDTH 13.5 % (11.5-15.2)
[2016-06-21 05:20] LABS: ANION GAP 8 mEq/L (8-16); CALCIUM 8.9 mg/dL (8.5-10.4); CARBON DIOXIDE 25 mEq/l (22-31); CHLORIDE 107 mEq/L (97-110); CREATININE 1.2 mg/dL (0.7-1.3); GLOMERULAR FILTRATION RATE 58; GLUCOSE 95 mg/dL (70-100); POTASSIUM 4.3 mEq/L (3.5-5.2); SODIUM 140 mEq/L (134-144)
[2016-06-21 07:53] VITALS: BP 144/74; PULSE 60; RESP 14; TEMP 97.3; O2SAT 90
[2016-06-21] MEDS: PANTOPRAZOLE SODIUM 40 MG TAB PO SCH (08:04)
[2016-06-21] MEDS: ASPIRIN 81 MG CHEWABLE TAB PO SCH (08:05)
[2016-06-21] MEDS: METOPROLOL SUCCINATE XR 25 MG TAB PO SCH (08:05)
[2016-06-21] MEDS ORDERED: CLOPIDOGREL BISULFATE 75 MG TAB PO SCH (09:00)
--- NOTE | 2016-06-21 09:09 | CPEKG ---
Heart Rate: 58 RR Interval: 1034 P-R Interval: 212 QRSD Interval: 178 QT Interval: 504 QTC Interval: 496 P [place]: 42 QRS [place]: -59 T Wave [place]: 100 EKG Severity - ABNORMAL ECG - EKG Impression: SINUS RHYTHM EKG Impression: LEFT BUNDLE BRANCH BLOCK Electronically Signed By: Julian Patton 21-Jun-2016 11:11:50
--- NOTE | 2016-06-21 11:59 | PDDCSUM ---
Discharge Summary Discharge Summary: DISCHARGE SUMMARY NOTE DISCHARGE DIAGNOSES: # Symptomatic atrial fibrillation with rapid ventricular rate, acute episode with intermittent AFib # Non STEMI # right coronary artery stenosis, now status post stenting to right coronary artery with drug-eluting stent CONSULTANTS: Dr. Cassius Patton PROCEDURES: Coronary angiography, stenting of right coronary artery with drug-eluting stent HOSPITAL COURSE SUMMARY: this patient with long history of recurrent atrial fibrillation had been previously scheduled for and it ablation with Dr. Patton. At this time he comes in with rapid atrial fibrillation, chest discomfort, mildly elevated troponin, not in heart failure. Responded quite well to rate control. Due to the EKG changes and troponin the patient underwent coronary angiography showing significant stenosis of the right coronary which was stented by Dr. Robles. This was successful without complication. At this point the patient is stable for discharge home. He will need his ablation procedure done. However it is elected to not take him off of anticoagulation at this time due to his cardioversion with amiodarone. The patient therefore will stay on Eliquis for the next several days, stop it this weekend and bridge with Lovenox, and he will return Sunday morning for his ablation procedure with Dr. Patton. The patient is given detailed instructions about his medications regarding this by Dr. Patton, by Dr. christine araya, and by myself and he understands. MEDICATION CHANGES: Plavix is added be due to drug eluting stent He will stop Eliquis 2 days from now and start Lovenox the next day for 2 days, and stop that for his ablation the following day which is Sunday Greater than 35 minutes bedside and care coordination time today
== END 2016-06-21 12:27 | disposition home or self-care (01) | DRG 248 ==
LOC: F2W 16:52
PROVIDERS: ADMIT Internal Medicine; ATTEND Internal Medicine
PROC: 5A2204Z Restoration of Cardiac Rhythm, Single (ICD-10-PCS; 2016-06-18)
PROC: 5A2204Z Restoration of Cardiac Rhythm, Single (ICD-10-PCS; 2016-06-18)
PROC: B2151ZZ Fluoroscopy of Left Heart using Low Osmolar Contrast (ICD-10-PCS; principal; 2016-06-20)
PROC: 4A023N7 Measurement of Cardiac Sampling and Pressure, Left Heart, Percutaneous Approach (ICD-10-PCS; principal; 2016-06-20)
PROC: 02703DZ Dilation of Coronary Artery, One Artery with Intraluminal Device, Percutaneous Approach (ICD-10-PCS; principal; 2016-06-20)
PROC: B2111ZZ Fluoroscopy of Multiple Coronary Arteries using Low Osmolar Contrast (ICD-10-PCS; principal; 2016-06-20)
DX: I48.0 Paroxysmal atrial fibrillation (principal); I48.3 Typical atrial flutter; I21.4 Non-ST elevation (NSTEMI) myocardial infarction; I25.10 Atherosclerotic heart disease of native coronary artery without angina pectoris; I25.5 Ischemic cardiomyopathy; Z95.5 Presence of coronary angioplasty implant and graft; I44.7 Left bundle-branch block, unspecified; J43.9 Emphysema, unspecified; Z87.891 Personal history of nicotine dependence; E78.5 Hyperlipidemia, unspecified; I10 Essential (primary) hypertension; G47.33 Obstructive sleep apnea (adult) (pediatric)
CPT/HCPCS: 96374; C1725; C1769; C1874; C1887; C9600; J0153; J0282; J0461; J0583; J1644; J1650; J2250; J2704; J3010; Q9967

== ENCOUNTER 2016-06-26 07:11 | Observation (INO) | payer OTHER, MEDICARE ==
[2016-06-26] MEDS ORDERED: NS 1,000 ML IV ONE (07:14)
[2016-06-26] MEDS ORDERED: MIDAZOLAM 2 MG/2 ML VIAL IVP ONE (07:14)
--- NOTE | 2016-06-26 07:34 | CPEKG ---
Heart Rate: 72 RR Interval: 833 P-R Interval: 192 QRSD Interval: 172 QT Interval: 464 QTC Interval: 508 P [place]: 72 QRS [place]: -47 T Wave [place]: 113 EKG Severity - ABNORMAL ECG - EKG Impression: SINUS RHYTHM EKG Impression: LEFT BUNDLE BRANCH BLOCK Electronically Signed By: Tho Bermudez 26-Jun-2016 07:47:17
[2016-06-26 08:06] LABS: % IMMATURE GRANULYOCYTES 0.2 % (0.0-1.1); ABSOLUTE IMMATURE GRANULOCYTES 0.01 10^3/uL (0.00-0.10); ADD DIFF? NO; ADD MORPH? NO; ADD SCAN? NO; ATYPICAL LYMPHOCYTE FLAG 40 (0-99); FRAGMENT RBC FLAG 0 (0-99); HEMATOCRIT 48.2 % (40.0-51.0); HEMOGLOBIN 16.5 g/dL (13.7-17.5); LEFT SHIFT FLG 0 (0-99); LIPEMIA HEMOLYSIS FLAG 90 (0-99); MEAN CELL HEMOGLOBIN 31.5 pg (27.9-34.1); MEAN CELL HEMOGLOBIN CONCENTR. 34.2 g/dL (32.4-36.7); PLATELET CLUMPS FLAG 0 (0-99); PLATELET COUNT 119 10^3/uL (150-400); RED BLOOD CELL COUNT 5.24 10^6/uL (4.40-6.38); RED CELL DISTRIBUTION WIDTH 13.5 % (11.5-15.2)
[2016-06-26 08:15] LABS: APTT 33.8 SEC (23.0-38.0); INR 1.16 (0.83-1.16); PROTIME(PATIENT) 14.8 SEC (12.0-15.0)
[2016-06-26] MEDS ORDERED: ISOPROTERENOL HCL 0.2 MG/ML 5ML AMP ONE (08:18)
[2016-06-26] MEDS ORDERED: HEPARIN 10,000 UNIT/10 ML MDV ONE (08:18)
[2016-06-26] MEDS ORDERED: LIDOCAINE 1% 30 ML SDV ONE (08:18)
[2016-06-26] MEDS ORDERED: BUPIVACAINE 0.5% 30 ML SDV ONE (08:20)
[2016-06-26 08:26] LABS: ANION GAP 10 mEq/L (8-16); CALCIUM 9.5 mg/dL (8.5-10.4); CARBON DIOXIDE 24 mEq/l (22-31); CHLORIDE 107 mEq/L (97-110); GLOMERULAR FILTRATION RATE > 60; GLUCOSE 104 mg/dL (70-100); MAGNESIUM 2.1 mg/dL (1.6-2.3); POTASSIUM 4.5 mEq/L (3.5-5.2); SODIUM 141 mEq/L (134-144)
[2016-06-26] MEDS ORDERED: ROCURONIUM 100 MG/10 ML VIAL ONE (08:35)
[2016-06-26] MEDS ORDERED: fentaNYL 100 MCG/2 ML INJ ONE ×2 (08:36→11:21)
[2016-06-26] MEDS ORDERED: REMIFENTANIL HCL 1 MG VIAL ONE (08:36)
[2016-06-26] MEDS ORDERED: PROPOFOL/EMULSION 500 MG/50 ML BOTTLE IV ONE (08:37)
[2016-06-26] MEDS ORDERED: PROPOFOL 200 MG/20 ML VIAL ONE (08:37)
[2016-06-26] MEDS ORDERED: PHENYLEPHRINE HCL 100 MCG/ML SYR ONE (10:06)
[2016-06-26] MEDS ORDERED: SUGAMMADEX SODIUM 200 MG/2 ML VIAL IVP ONE (10:34)
[2016-06-26] MEDS ORDERED: ONDANSETRON 4 MG/2 ML VIAL IVP PRN (10:46)
[2016-06-26] MEDS ORDERED: ACETAMINOPHEN 325 MG TAB PO PRN (10:46)
--- NOTE | 2016-06-26 10:56 | EPPROC ---
Electrophysiology Procedure Note: ELECTROPHYSIOLOGIC STUDY AND CATHETER MEDIATED ABLATION OF FOCAL RIGHT ATRIAL TACHYCARDIA PROCEDURES PERFORMED: 1. EP evaluation with RA/RV/LA pace/record, with arrhythmia induction 2. EP evaluation with RA/RV pace record, insert/reposition catheter, with arrhythmia induction 3. Intracardiac catheter ablation, SVT arrhythmogenic focus 4. 3D mapping 5. Fluoroscopy INDICATION: SVT with angina Recent PCI to LCX Catheters and anesthesia: The patient arrived in the Electrophysiology Laboratory in the fasting state. The right clavicular region, right groin, and left groin area were prepped and draped in the usual sterile manner. Anesthesiologist Dr. Senior administered general anesthesia. Appropriate non-invasive blood pressure, pulse oximetry and end-tidal CO2 monitoring was established. All catheters were placed percutaneously using the modified Seldinger technique , and advanced into position under fluoroscopic guidance. One #7 Tongan deflectable octapolar electrode catheter was advanced to the His-bundle position via the left femoral vein. One #6Fr Abisai catheter was placed in RAA (2mm spacing; except the proximal ring which was 25cm from the tip used for unipolar recordings). One #7 Tongan deflectable catheter with 10 pairs of electrodes was placed via the left femoral vein into the coronary sinus. Programmed stimulation was performed from the right atrium, left atrium ( coronary sinus) and right ventricle. Parahisian pacing demonstrated all retrograde conduction over the AV node Heparin was administered to keep ACT > 200 seconds. SCL 1095 ms AH 65 ms HV 75 ms (LBBB) Programmed stimulation of right atrium during infusion of isoproterenol 0.5-1 mcg/min induced an atrial tachycardia, CL 450 ms. AV dissociation was induced with ventricular overdrive pacing confirming atrial tachycardia. A #7 Tongan mapping catheter was introduced into the right atrium and used for mapping AT . A 3D mapping system ([employer]) was used. A detailed 3D map of the right atrium and coronary sinus showed earliest atrial activation along the superior aspect of vanna terminalis. No phrenic stimulation was noted at this site. Earliest atrial activation began 40 ms before the onset of the P wave with a negative deflection in the unipolar electrogram. RF applications were delivered to this site. RF#1 eliminated AT. Automaticity was noted during RF#1- 3. Programmed stimulation in the baseline state and during infusion of isoproterenol 1, 2 mcg/min post ablation was performed. No tachycardia could be induced. The catheters were removed. The patient was transferred to the cardiovascular holding area in stable condition. Vascular access sheaths were removed in the holding area. There were no apparent complications. CONCLUSIONS: 1. Focal atrial tachycardia arising at superior aspect of vanna terminalis. 2. Successful ablation of focal atrial tachycardia. 3. Infrahisian conduction system disease (left bundle branch block) 4. No apparent complications. Patient Problems: Problems Problem Status Onset Chest pain Acute Paroxysmal atrial flutter Acute Encounter for cardioversion procedure Acute
--- NOTE | 2016-06-26 11:17 | CPEKG ---
Heart Rate: 67 RR Interval: 896 P-R Interval: 208 QRSD Interval: 176 QT Interval: 484 QTC Interval: 511 P [place]: 68 QRS Cobb: -42 T Wave [place]: 117 EKG Severity - ABNORMAL ECG - EKG Impression: SINUS RHYTHM EKG Impression: LEFT BUNDLE BRANCH BLOCK Electronically Signed By: Tho Bermudez 26-Jun-2016 14:50:50
[2016-06-26] MEDS ORDERED: OXYCODONE/APAP 5/325 TAB PO PRN (11:25)
[2016-06-26] MEDS ORDERED: CLOPIDOGREL BISULFATE 75 MG TAB ONE (11:28)
[2016-06-26] MEDS: CLOPIDOGREL BISULFATE 75 MG TAB PO SCH (11:30)
[2016-06-26 12:06] LABS: ANION GAP 7 mEq/L (8-16); CALCIUM 8.7 mg/dL (8.5-10.4); CARBON DIOXIDE 26 mEq/l (22-31); CHLORIDE 109 mEq/L (97-110); CREATININE 1.1 mg/dL (0.7-1.3); GLOMERULAR FILTRATION RATE > 60; GLUCOSE 95 mg/dL (70-100); SODIUM 142 mEq/L (134-144)
[2016-06-26] MEDS ORDERED: ROSUVASTATIN CALCIUM 20 MG TAB PO SCH (21:00)
[2016-06-26] MEDS ORDERED: ZOLPIDEM TARTRATE 5 MG TAB PO SCH (21:00)
[2016-06-26] MEDS ORDERED: NON-FORMULARY NEW DRUG (Zolpidem Tartrate [Ambien 10 Mg] 0 MG) PO SCH (21:00)
[2016-06-26] MEDS ORDERED: MIRTAZAPINE 15 MG TAB PO SCH (21:00)
[2016-06-26] MEDS ORDERED: NON-FORMULARY NEW DRUG (Mirtazapine [Remeron] 15 MG) PO SCH (21:00)
[2016-06-26] MEDS ORDERED: METOPROLOL SUCCINATE XR 25 MG TAB PO SCH (21:00)
[2016-06-26 23:41] VITALS: RESP 16
[2016-06-27 05:56] LABS: % IMMATURE GRANULYOCYTES 0.5 % (0.0-1.1); ABSOLUTE IMMATURE GRANULOCYTES 0.03 10^3/uL (0.00-0.10); ADD DIFF? NO; ADD MORPH? NO; ADD SCAN? NO; ATYPICAL LYMPHOCYTE FLAG 40 (0-99); FRAGMENT RBC FLAG 0 (0-99); HEMATOCRIT 43.1 % (40.0-51.0); HEMOGLOBIN 14.3 g/dL (13.7-17.5); LEFT SHIFT FLG 0 (0-99); LIPEMIA HEMOLYSIS FLAG 80 (0-99); MEAN CELL HEMOGLOBIN CONCENTR. 33.2 g/dL (32.4-36.7); MEAN CELL VOLUME 93.5 fL (81.5-99.8); MEAN PLATELET VOLUME 9.3 fL (8.7-11.7); PLATELET CLUMPS FLAG 0 (0-99); PLATELET COUNT 119 10^3/uL (150-400); RED BLOOD CELL COUNT 4.61 10^6/uL (4.40-6.38); RED CELL DISTRIBUTION WIDTH 13.5 % (11.5-15.2)
[2016-06-27 05:59] LABS: INR 1.16 (0.83-1.16); PROTIME(PATIENT) 14.8 SEC (12.0-15.0)
[2016-06-27] MEDS ORDERED: METOPROLOL SUCCINATE XR 25 MG TAB PO SCH (06:00)
[2016-06-27 06:03] LABS: ANION GAP 9 mEq/L (8-16); CALCIUM 8.8 mg/dL (8.5-10.4); CARBON DIOXIDE 25 mEq/l (22-31); CHLORIDE 107 mEq/L (97-110); GLOMERULAR FILTRATION RATE > 60; GLUCOSE 93 mg/dL (70-100); POTASSIUM 4.2 mEq/L (3.5-5.2); SODIUM 141 mEq/L (134-144)
[2016-06-27 06:05] VITALS: TEMP 97.9
[2016-06-27 06:12] LABS: CREATINE KINASE-MB FRACTION 1.17 ng/mL (0-3.19)
[2016-06-27 08:33] VITALS: BP 93/54; PULSE 66; O2SAT 90
--- NOTE | 2016-06-27 08:47 | CPEKG ---
Heart Rate: 64 RR Interval: 938 P-R Interval: 228 QRSD Interval: 172 QT Interval: 480 QTC Interval: 496 P [place]: 25 QRS [place]: -46 T Wave [place]: 96 EKG Severity - ABNORMAL ECG - EKG Impression: SINUS RHYTHM EKG Impression: FIRST DEGREE AV BLOCK EKG Impression: LEFT BUNDLE BRANCH BLOCK Electronically Signed By: Julian Patton 27-Jun-2016 10:24:18
[2016-06-27] MEDS: CLOPIDOGREL BISULFATE 75 MG TAB PO SCH (08:48)
[2016-06-27] MEDS ORDERED: NON-FORMULARY NEW DRUG (Omeprazole [Prilosec 20 Mg] 20 MG) PO SCH (09:00)
[2016-06-27] MEDS ORDERED: PANTOPRAZOLE SODIUM 40 MG TAB PO SCH (09:00)
--- NOTE | 2016-06-27 10:55 | ECHO ---
[id number] + + [id number] : : [place] [id number] : : [phone] + + Adult Echocardiographic Report + -----+ :Name: BRIANNE BROWN BStudy Date: 06/27/2016 08:47 AM BP: 93/54 mmHg : : Hospital Admission Number: [id number] Location : 217: :: 1935 Gender: Male Height: 70 in : :Age: 81 yrs Race: WH Weight: 167 lb : :Reason For Study: post EP : : BSA: 1.9 meters2 : :History: post EP : + -----+ MMode/2D Measurements \T\ Calculations IVSd: 1.2 cm RVDd: 4.8 cm FS: 23.6 % Ao root diam: LVPWd: 1.0 cm LVIDd: 4.4 cm EDV(Teich): 3.4 cm LVIDs: 3.4 cm 89.5 ml LA dimension: ESV(Teich): 3.5 cm 47.1 ml EF(Teich): 47.4 % LVLd ap4: 8.7 cm SV(MOD-sp4): EDV(MOD-sp4): 46.0 ml 103.0 ml LVLs ap4: 7.7 cm ESV(MOD-sp4): 57.0 ml EF(MOD-sp4): 44.7 % Normal Measurement Values: + + :LVIDd (3.5-5.7cm) IVSd (0.6-1.1cm) LVPWd (0.6-1.1cm) Aortic Root (2.0-3.7cm)Left Atrium (1.5-4.0cm): :LV Vol(d) (76-115ml) LV Vol(s) (29-48ml) Ejec Fraction (50-65%)PV Shmuel (0.6- 1.2m/s) TV Shmuel (0.4-1.0m/s) : :MV E Shmuel (0.8-1.0m/s)MV A Shmuel (0.3-1.0m/s)LVOT Shmuel (0.7-1.2m/s) Asc Ao Shmuel ( 0.9-1.8m/s) : + + Doppler Measurements \T\ Calculations MV E max shmuel: Ao V2 max: LV V1 max: PA V2 max: 45.9 cm/sec 111.5 cm/sec 85.3 cm/sec 111.5 cm/sec MV A max shmuel: Ao max P.0 mmHgLV V1 max PG: PA max P.2 cm/sec 2.9 mmHg 5.0 mmHg MV E/A: 0.80 MV dec time: 0.18 sec PI end-d shmuel: TR max shmuel: 64.0 cm/sec 288.0 cm/sec TR max P.2 mmHg RAP systole: 10.0 mmHg RVSP(TR): 43.2 mmHg Left Ventricle The left ventricle is normal in size. There is normal left ventricular wall thickness. There is mild concentric left ventricular hypertrophy. Left ventricular systolic function is mildly reduced. There is Doppler evidence for diastolic dysfunction. Ejection Fraction = 45%. Abnormal septal motion consistent with BBB. Right Ventricle The right ventricle is moderately dilated. The right ventricular systolic function is normal. Atria The left atrial size is normal. The right atrium is mildly dilated. There was no clot seen in the IVC. The lack of respiratory variation in the inferior vena cava diameter is noted. A patent foramen ovale is present. Mitral Valve The mitral valve is normal in structure and function. There is no mitral valve stenosis. There is trace mitral regurgitation. Tricuspid Valve The tricuspid valve is normal in structure and function. There is no tricuspid stenosis. There is mild tricuspid regurgitation. Right ventricular systolic pressure is 43mmHg. There is Doppler evidence for mild pulmonary hypertension. Aortic Valve The aortic valve is trileaflet. Mild Aortic Valve Calcification. There is no aortic stenosis. Mild aortic regurgitation. Pulmonic Valve The pulmonic valve is not well visualized. Mild to moderate pulmonic valvular regurgitation. Great Vessels The aortic root is normal size. Pericardium/Pleural There is no pericardial effusion. There is a fat pad seen. Conclusion A two-dimensional transthoracic echocardiogram with M-mode and Doppler was performed. There is mild concentric left ventricular hypertrophy. Left ventricular systolic function is mildly reduced. There is Doppler evidence for diastolic dysfunction. Ejection Fraction = 45%. Abnormal septal motion consistent with BBB. The right ventricle is moderately dilated. The right atrium is mildly dilated. There was no clot seen in the IVC. A patent foramen ovale is present. There is trace mitral regurgitation. There is mild tricuspid regurgitation. Right ventricular systolic pressure is 43mmHg. There is Doppler evidence for mild pulmonary hypertension. Mild aortic regurgitation. Mild to moderate pulmonic valvular regurgitation. There is no pericardial effusion. Final Reading Physician: Julian Patton MD electronically signed on 06/27/2016 10:54 AM Ordering Physician: Mone Devine Performed By: Maile Pyle
--- NOTE | 2016-06-27 16:14 | GDS ---
[f rep st] DISCHARGE SUMMARY DISCHARGE DIAGNOSES: 1. Supraventricular tachycardia with angina, status post EP study with a focal atrial tachycardia a t the superior aspect of the vanna terminalis with successful ablation. 2. History of left bundle branch block. 3. History of coronary artery disease with previous PCIs most recently to the right coronary artery in May of 2016 and PCIs to circumflex in 1999 and 2005. 4. Dyslipidemia. PROCEDURES: 1. 06/2016, electrophysiologic study with ablation of focal atrial tachycardia. 2. 06/27/2016, echocardiogram which shows an LVEF of 45%, mild concentric LVH, diastolic dysfunctio n, abnormal septal motion consistent with bundle branch block, moderately dilated left ventricle, mi ldly dilated right atrium, patent foramen ovale is present. Trace MR, mild TR, RVSP of 43 mmHg with Doppler evidence of mild pulmonary hypertension, eiva-au-mahibwug pulmonic valve regurgitation, mil d aortic regurgitation. BRIEF HISTORY: Please see dictated H and P from our office for complete details. In brief, this pa peter is an 81-year-old male with a history of coronary artery disease. He was seen in clinic with a rapid heart rate with associated chest pain. He required DC cardioversion for this. He was follo wed up with Dr. Patton in in electrophysiology and was advised on EP study. This revealed a right atri al tachycardia that was successfully ablated. On day of discharge, he denies any groin pain, dyspne a or chest pain. He is being discharged to home with instructions to continue Eliquis for 1 month's time. He will discontinue it after that. He will continue his management for coronary artery dise ase which includes metoprolol and Crestor. He will also remain on Plavix therapy. RESULTS PENDING: None. DIET: Cardiac diet recommended. ACTIVITY: Groin precautions were reviewed. DISCHARGE MEDICATIONS: Please see med reconciliation for complete details. He will continue Eliqui s for another month. His digoxin has been stopped. He will continue metoprolol, clopidogrel, [place] on, zolpidem, Crestor, omeprazole per home dosing. FOLLOWUP INSTRUCTIONS: 1. Groin precautions. 2. Follow up with Dr. Patton as scheduled for 1 month's time. /[id number]/MODL
== END 2016-06-27 11:32 | disposition home or self-care (01) ==
LOC: FCATH 07:11 → F2W 10:47
PROVIDERS: ADMIT Internal Medicine Cardiovascular Disease; ATTEND Internal Medicine Cardiovascular Disease
PROC: 02K83ZZ Map Conduction Mechanism, Percutaneous Approach (ICD-10-PCS; principal; 2016-06-26)
PROC: 02563ZZ Destruction of Right Atrium, Percutaneous Approach (ICD-10-PCS; principal; 2016-06-26)
DX: I47.1 Supraventricular tachycardia (principal); I44.7 Left bundle-branch block, unspecified; I25.10 Atherosclerotic heart disease of native coronary artery without angina pectoris; I10 Essential (primary) hypertension; E78.5 Hyperlipidemia, unspecified; Z95.5 Presence of coronary angioplasty implant and graft
CPT/HCPCS: 93005; 93306; 93613; 93621; 93623; 93653; C1730; C1731; C1732; J1644; J2250; J2370; J2704; J3010

== ENCOUNTER → 2016-08-02 | Outpatient (CLI) | payer OTHER, MEDICARE | LOC: BHFA 16:00 | PROVIDERS: ATTEND Internal Medicine Cardiovascular Disease | DX: I47.1 Supraventricular tachycardia (principal); I44.7 Left bundle-branch block, unspecified ==

== ENCOUNTER → 2016-09-11 | Outpatient (CLI) | payer OTHER, MEDICARE | LOC: BMCIMAGING 11:25 | PROVIDERS: ATTEND Emergency Medicine | DX: J98.4 Other disorders of lung (principal); I28.8 Other diseases of pulmonary vessels ==

== ENCOUNTER → 2017-07-03 | Outpatient (CLI) | payer OTHER, MEDICARE ==
[~2017-07-03] MED LIST: IOPAMIDOL (ISOVUE-300) 100 ML BTL ONE
== END ==
LOC: FIMAGING 09:38
PROVIDERS: ATTEND Internal Medicine Critical Care Medicine
DX: J43.2 Centrilobular emphysema (principal); R91.8 Other nonspecific abnormal finding of lung field; I27.20 Pulmonary hypertension, unspecified; I25.10 Atherosclerotic heart disease of native coronary artery without angina pectoris
CPT/HCPCS: 71260; Q9967

== ENCOUNTER → 2018-02-04 | Outpatient (CLI) | payer OTHER, MEDICARE | LOC: BHFA 13:00 | PROVIDERS: ATTEND Internal Medicine Cardiovascular Disease | DX: Z01.810 Encounter for preprocedural cardiovascular examination (principal); I27.20 Pulmonary hypertension, unspecified; I47.1 Supraventricular tachycardia; I25.10 Atherosclerotic heart disease of native coronary artery without angina pectoris; I10 Essential (primary) hypertension; I44.7 Left bundle-branch block, unspecified; E78.5 Hyperlipidemia, unspecified ==

== ENCOUNTER 2018-02-12 06:47 | Day surgery (SDC) | payer OTHER, MEDICARE ==
--- NOTE | 2018-02-11 20:41 | PDGENHP ---
History and Physical - Chief Complaint umbilical hernia - History of Present Illness 82yo M presents with a 3-4 mo Hx of umbilical pain. Has had repair of umbilical hernia about 5 years ago. Did well for the most part, states that over the past few months, the area has become more sensitive. Denies fevers or chills History Information - Allergies/Home Medication List Allergies/Adverse Reactions: No Known Allergies Allergy (Verified 02/11/18 18:14) Home Medications: Rosuvastatin Calcium [Crestor 20mg (*)] 10/27/11 [Last Taken 06/24/16] Zolpidem Tartrate [Ambien 10 mg] 10/27/11 [Last Taken 06/25/16] Metoprolol Succinate BID 06/18/16 [Last Taken 06/23/16] I have personally reviewed and updated: medical history, social history, surgical history - Social History Smoking Status: Former smoker Review of Systems Review of Systems: ROS: 10pt was reviewed & negative except for what was stated in HPI & below Physical Exam Physical Exam: Constitutional: no apparent distress, appears nourished, not in pain Eyes: PERRL, anicteric sclera, EOMI Ears, Nose, Mouth, Throat: moist mucous membranes, hearing normal, ears appear normal, no oral mucosal ulcers Cardiovascular: regular rate and rhythym, no murmur, rub, or gallop, No edema Respiratory: no respiratory distress, no rales or rhonchi, clear to auscultation Gastrointestinal: normoactive bowel sounds, soft, non-tender abdomen, no palpable masses, other (small, reducible supra umbilcial hernia) Genitourinary: no bladder fullness, no bladder tenderness Skin: warm, normal color, no rashes or abrasions, no fluctuance, no induration, No mottled Musculoskeletal: full muscle strength, no muscle tenderness, normal joint ROM, no joint effusions Psychiatric: interacting appropriately, not anxious, not encephalopathic, thought process linear Lymph, Heme, Immunologic: no cervical LAD, no supraclavicular LAD Assessment & Plan Assessment: 82yo M, recurrent umbilical hernia Plan: to OR for open repair, will get cardiac clearance before OR
[2018-02-12] MEDS ORDERED: ceFAZolin 2 GM/DEXTROSE 100 ML IV ONE (07:07)
[2018-02-12] MEDS ORDERED: LR 1,000 ML IV ONE (07:07)
[2018-02-12] MEDS ORDERED: BUPIVACAINE 0.5% 30 ML SDV ONE (07:43)
--- NOTE | 2018-02-12 07:44 | PDHPUP ---
History & Physical Update H&P update statement: This history and physical update is based on an assessment of the patient which was completed after admission or registration (within 24 hours), but prior to the surgery/procedure. H&P update: H&P reviewed & patient examined, no change in patient's condition since H&P completed
--- NOTE | 2018-02-12 07:49 | PDANEPAE ---
ANE Past Medical History - Cardiovascular History Hx Hypertension: Yes Hx Arrhythmias: Yes Hx Chest Pain: No Hx Coronary Artery / Peripheral Vascular Disease: Yes Hx CHF / Valvular Disease: No Hx Palpitations: Yes Cardiovascular History Comment: htn. afib. svt. hyperlipidemia. followed by [facility] - Pulmonary History Hx COPD: Yes Hx Asthma/Reactive Airway Disease: No Hx Recent Upper Respiratory Infection: No Hx Oxygen in Use at Home: No Hx Sleep Apnea: No Sleep Apnea Screening Result - Last Documented: Positive Pulmonary History Comment: estefania positive doesn't use any devices - Neurologic History Hx Cerebrovascular Accident: No Hx Seizures: No Hx Dementia: No - Endocrine History Hx Diabetes: No - Renal History Hx Renal Disorders: No - Liver History Hx Hepatic Disorders: No - Neurological & Psychiatric Hx Hx Neurological and Psychiatric Disorders: No - Cancer History Hx Cancer: No - Congenital Disorder History Hx Congenital Disorders: No - GI History Hx Gastrointestinal Disorders: Yes Gastrointestinal History Comment: hx of colonoscopy. colon polyps - Other Health History Other Health History: wears glasses. wears bilateral hearing aides - Chronic Pain History Chronic Pain: No - Surgical History Prior Surgeries: 06/26/16 ep study with Pooja. 11/22/15 colonoscopy with [facility]. 10/22/08 bilateral ing hernia repair with [facility]. TONSILLECTOMY. cardiac stents x3. LT CATARACT ANE Review of Systems Review of Systems: - Exercise capacity METS (RN): 3 METS ANE Patient History - Allergies Allergies/Adverse Reactions: No Known Allergies Allergy (Verified 02/11/18 18:14) - Home Medications Home Medications: Rosuvastatin Calcium [Crestor 20mg (*)] 10/27/11 [Last Taken 02/11/18] Zolpidem Tartrate [Ambien 10 mg] 10/27/11 [Last Taken 02/11/18] Metoprolol Succinate BID 06/18/16 [Last Taken 02/11/18] - NPO status NPO Since - Liquids (Date): 02/11/18 NPO Since - Liquids (Time): 20:00 NPO Since - Solids (Date): 02/11/18 NPO Since - Solids (Time): 18:00 - Smoking Hx Smoking Status: Former smoker - Family Anes Hx Family Hx Anesthesia Complications: none ANE Labs/Vital Signs - Vital Signs Blood Pressure: 92/71 Heart Rate: 69 Respiratory Rate: 16 O2 Sat (%): 89 Height: 177.8 cm Weight: 74.843 kg ANE Physical Exam - Airway Neck exam: decreased ROM Mallampati Score: Class 1 Mouth exam: normal dental/mouth exam - Pulmonary Pulmonary: no respiratory distress - Cardiovascular Cardiovascular: regular rate and rhythym - ASA Status ASA Status: III ANE Anesthesia Plan Anesthesia Plan: GA w LMA
[2018-02-12] MEDS ORDERED: PROPOFOL 200 MG/20 ML VIAL ONE ×2 (08:04→08:18)
[2018-02-12] MEDS ORDERED: fentaNYL 100 MCG/2 ML INJ ONE (08:05)
[2018-02-12] MEDS ORDERED: fentaNYL 100 MCG/2 ML INJ IVP PRN (08:44)
[2018-02-12] MEDS ORDERED: ONDANSETRON 4 MG/2 ML VIAL IVP PRN (08:44)
[2018-02-12] MEDS ORDERED: NALOXONE HCL 0.4 MG/ML INJ IVP PRN (08:44)
[2018-02-12] MEDS ORDERED: HYDROCODONE/APAP 5/325 TAB PO PRN (08:44)
--- NOTE | 2018-02-12 09:18 | POSTANESTH ---
Post Anesthetic Evaluation Cardiovascular Status: Normal, Stable Respiratory Status: Normal, Stable Level of Consciousness/Mental Status: Mildly Sleepy, Arousable Pain Control: Adequate, Prn Tx Ordered Nausea/Vomiting Control: Adequate, Prn Tx Ordered Complications Possibly Related to Anesthesia: None Noted
--- NOTE | 2018-02-12 10:42 | GOP ---
DATE OF OPERATION: 02/12/2018 SURGEON: Natanael Vallejo MD LOCAL FLATBED DRIVER: Aracelis Dumont, certified surgical first beater. ANESTHESIA: General endotracheal. ANESTHESIOLOGIST: Dr. Dickens. PREOPERATIVE DIAGNOSIS: Recurrent umbilical hernia. POSTOPERATIVE DIAGNOSIS: Recurrent umbilical hernia. PROCEDURE PERFORMED: Umbilical hernia repair with mesh. FINDINGS: 2 cm defect successfully repaired with Parietex Composite Ventral Patch mesh 4.6 cm. SPECIMENS: None. ESTIMATED BLOOD LOSS: 5 cc. DESCRIPTION OF PROCEDURE: The patient was greeted in the preoperative suite. Once again, risks, benefits, and alternatives were discussed and consent was signed. He was then brought back to the operative suite, placed on the OR table in supine position. After all anesthesia machines, including SCDs were on and functioning, a World Health Organization time-out was performed. After successful induction of general anesthesia, the patient's abdomen was prepped and draped in typical sterile fashion. I commenced the procedure by making an infraumbilical incision encompassing previous scar. I carried this down through the subcutaneous tissue. I successfully amputated the umbilical stalk from the underlying hernia sac. The hernia sac was then dissected off the fascia. The fascial defect measured approximately 2 cm in greatest dimension. The underlying surface was successfully cleaned with blunt dissection. Once successfully cleaned, I elected to use a Parietex composite ventral patch, which was successfully brought into the field. It was placed within the defect. The 4 anchoring tabs were successfully anchored to the fascial edges using interrupted 3-0 PDS sutures. After successfully anchoring the mesh, I then turned my attention toward closing the defect. It was reapproximated using multiple interrupted braided nylon sutures in a Smead-Mcginnis type fashion noting excellent fascial reapproximation. Local anesthesia was then infiltrated into the fascia. The umbilical stalk was then reapproximated. Subcutaneous tissue was reapproximated with interrupted 3-0 Vicryl. The skin was closed with 4-0 Monocryl over which Dermabond was placed. Sterile dressing was placed over this. The patient was then gently awoken and taken to the PACU in satisfactory condition. DRAINS: None. COUNTS: All counts were reported as correct x2. /[id number]/MODL MTDD
--- NOTE | 2018-02-12 11:25 | POSTOPPROG ---
Post Op Note Date of Operation: 02/12/18 Surgeon: Natanael Vallejo Inspector And Adjuster [employer] Head: NICKI Ott Anesthesiologist: Maninder Anesthesia: LMA Pre-op Diagnosis: recurrent umbilical hernia Post-op Diagnosis: same Procedure: Open umbilical hernia repair with mesh Findings: 2cm defect Inf/Abcess present in the surg proc area at time of surgery?: No EBL: Minimal
[2018-02-12 11:44] VITALS: BP 126/68
== END 2018-02-12 11:44 | disposition home or self-care (01) ==
LOC: FSGY 06:47
PROVIDERS: ATTEND Surgery
PROC: 0WUF0JZ Supplement Abdominal Wall with Synthetic Substitute, Open Approach (ICD-10-PCS; principal; 2018-02-12 08:00)
DX: K42.9 Umbilical hernia without obstruction or gangrene (principal); I25.10 Atherosclerotic heart disease of native coronary artery without angina pectoris; I44.7 Left bundle-branch block, unspecified; I47.1 Supraventricular tachycardia; I27.20 Pulmonary hypertension, unspecified; I10 Essential (primary) hypertension; E78.5 Hyperlipidemia, unspecified; G47.33 Obstructive sleep apnea (adult) (pediatric); J44.9 Chronic obstructive pulmonary disease, unspecified; Z87.891 Personal history of nicotine dependence; Z82.49 Family history of ischemic heart disease and other diseases of the circulatory system
CPT/HCPCS: C1781; J0690; J2704; J3010

== ENCOUNTER → 2018-04-15 | Outpatient (CLI) | payer OTHER, MEDICARE | LOC: FIMAGING 15:49 | PROVIDERS: ATTEND Physician Assistant Medical | DX: N32.9 Bladder disorder, unspecified (principal); I71.4 Abdominal aortic aneurysm, without rupture | CPT/HCPCS: 74178; Q9967 ==

== ENCOUNTER → 2018-06-12 | Outpatient (CLI) | payer OTHER, MEDICARE ==
[~2018-06-12] MED LIST changes: +IOHEXOL 350mgI/ML (OMNIPAQUE) 150 ML BTL IV ONE; -IOPAMIDOL (ISOVUE-300) 100 ML BTL ONE
== END ==
LOC: FIMAGING 16:31
PROVIDERS: ATTEND Surgery
DX: I71.4 Abdominal aortic aneurysm, without rupture (principal)
CPT/HCPCS: 75635; Q9967; 82565-PO

== ENCOUNTER → 2018-06-20 | Outpatient (CLI) | payer OTHER, MEDICARE | LOC: FIMAGING 13:28 ==

== ENCOUNTER 2018-08-19 08:26 | Inpatient (IN) | payer OTHER, MEDICARE ==
--- NOTE | 2018-08-14 15:10 | GCON ---
[f rep st] CONSULTATION GENERAL AND VASCULAR SURGERY CONSULTATION HISTORY OF PRESENT ILLNESS: The patient is an 83-year-old male, who complains of general abdominal d iscomfort with urinary frequency and comes to us with a CT scan done with Urology that incidentally r evealed a 5.5 x 5.1 cm infrarenal abdominal aortic aneurysm. The patient had an umbilical hernia rep aired about a year ago, but denies any other abdominal surgeries. He can walk around [facility] , [place] is [place] 1[place]25 miles without any leg, abdomen, or back pain. Since seeing us in June, he met with Dr. Toure in Interventional Radiology and appears to be a candidate for stent graft abdominal aortic aneurysm repair. PAST MEDICAL HISTORY: Includes coronary artery disease, COPD, degenerative disk disease, hernia repa ir, hypertension, insomnia, left bundle branch block, obstructive sleep apnea, pulmonary hypertension , and supraventricular tachycardia. PAST SURGICAL HISTORY: Includes bladder, finger, heart, and hernia surgery. MEDICATIONS: Ambien, aspirin, Crestor, metoprolol, and omeprazole. ALLERGIES: No known drug allergies. FAMILY MEDICAL HISTORY: Includes coronary artery disease and myocardial infarction. 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 He drinks soc ially on occasion and exercises regularly. He denies tobacco or illicit substance abuse. REVIEW OF SYSTEMS: Negative aside from that in the HPI. PHYSICAL EXAMINATION: GENERAL: A well-developed, well-nourished 83-year-old male in no acute distre ss. HEENT: Normocephalic atraumatic. CHEST: Clear to auscultation bilaterally. CARDIAC: Regular rate and rhythm. ABDOMEN: Soft and nontender. EXTREMITIES: Warm and dry with palpable pedal puls es. IMPRESSION: This is an 83-year-old male with an infrarenal abdominal aortic aneurysm amenable to shahrzad nt graft repair. PLAN: Plan will be for Dr. Mcginnis to provide femoral artery exposure and closure for stent graft repa ir of his aneurysm with Dr. Toure in Interventional Radiology. Risks of open surgery were discussed. Other risks include, but are not limited to, bleeding, infection, nerve injury, endoleak, need for fu rther surgeries or procedures, need for followup imaging, renal injury, damage to surrounding structu res, and other problems, and he requests to proceed. /[id number]/MODL
[2018-08-19] MEDS ORDERED: BUPIVACAINE 0.5% 30 ML SDV ONE (09:00)
[2018-08-19] MEDS ORDERED: THROMBIN (BOVINE) 20,000 UNIT SPRAY TP ONE (09:00)
[2018-08-19] MEDS ORDERED: LR 1,000 ML IV ONE ×2 (09:04→09:57)
[2018-08-19] MEDS ORDERED: IOPAMIDOL (ISOVUE-300) 100 ML BTL ONE ×2 (09:56→14:52)
--- NOTE | 2018-08-19 09:56 | PDANEPAE ---
ANE Past Medical History - Cardiovascular History Hx Hypertension: Yes Hx Arrhythmias: Yes Hx Chest Pain: No Hx Coronary Artery / Peripheral Vascular Disease: Yes Hx CHF / Valvular Disease: No Hx Palpitations: Yes Cardiovascular History Comment: htn. afib. svt. hyperlipidemia. followed by [facility] - Pulmonary History Hx COPD: Yes Hx Asthma/Reactive Airway Disease: No Hx Recent Upper Respiratory Infection: No Hx Oxygen in Use at Home: No Hx Sleep Apnea: Yes Sleep Apnea Screening Result - Last Documented: Positive Pulmonary History Comment: estefania positive doesn't use any devices - Neurologic History Hx Cerebrovascular Accident: No Hx Seizures: No Hx Dementia: No - Endocrine History Hx Diabetes: No Hypothyroid: No Hyperthyroid: No Obesity: no - Renal History Hx Renal Disorders: No - Liver History Hx Hepatic Disorders: No - Neurological & Psychiatric Hx Hx Neurological and Psychiatric Disorders: No - Cancer History Hx Cancer: No - Congenital Disorder History Hx Congenital Disorders: No - GI History GERD: no Hx Gastrointestinal Disorders: Yes Gastrointestinal History Comment: hx of colonoscopy. colon polyps - Other Health History Other Health History: wears glasses. wears bilateral hearing aides. UNGA - Chronic Pain History Chronic Pain: No - Surgical History Prior Surgeries: 06/26/16 ep study with Pooja. 11/22/15 colonoscopy with [facility]. 10/22/08 bilateral ing hernia repair with Tatum. TONSILLECTOMY. cardiac stents x3. LT CATARACT ANE Review of Systems Review of Systems: - Exercise capacity Exercise capacity: >=4 METS METS (RN): 4 METS ANE Patient History - Allergies Allergies/Adverse Reactions: shrimp Allergy (Verified 08/19/18 10:10) Hives - Home Medications Home Medications: Rosuvastatin Calcium [Crestor 20mg (*)] 10/27/11 [Last Taken 08/18/18] Zolpidem Tartrate [Ambien 10 mg] 10/27/11 [Last Taken 08/18/18] Metoprolol Succinate BID 06/18/16 [Last Taken 08/19/18 07:30] Aspirin 81mg (*) 08/12/18 [Last Taken 08/19/18 07:30] - NPO status NPO Since - Liquids (Date): 08/19/18 NPO Since - Liquids (Time): 07:30 NPO Since - Solids (Date): 08/18/18 - Anes Hx Anes Hx: no prior problems - Smoking Hx Smoking Status: Former smoker Marijuana use: No - Alcohol Use Alcohol Use: Rarely - Family Anes Hx Family Anes Hx: neg - N/A Family Hx Anesthesia Complications: none ANE Labs/Vital Signs - Labs Result Diagrams: 08/19/18 10:01 - Vital Signs Blood Pressure: 115/68 Heart Rate: 68 Respiratory Rate: 15 O2 Sat (%): 87 Height: 177.8 cm Weight: 74.843 kg ANE Physical Exam - Airway Neck exam: FROM Mallampati Score: Class 2 Mouth exam: normal dental/mouth exam - Pulmonary Pulmonary: no respiratory distress, no rales or rhonchi, clear to auscultation - Cardiovascular Cardiovascular: regular rate and rhythym, no murmur, rub, or gallop - ASA Status ASA Status: III ANE Anesthesia Plan Anesthesia Plan: general endotracheal anesthesia Lines/Monitors: arterial line Total IV Anesthesia: No
[2018-08-19] MEDS ORDERED: ceFAZolin 2 GM/DEXTROSE 100 ML IV ONE (09:57)
--- NOTE | 2018-08-19 10:03 | PDHPUP ---
History & Physical Update H&P update statement: This history and physical update is based on an assessment of the patient which was completed after admission or registration (within 24 hours), but prior to the surgery/procedure. H&P update: H&P reviewed & patient examined, no change in patient's condition since H&P completed, changes noted
[2018-08-19 10:26] LABS: PROTIME(PATIENT) 14.1 SEC (12.0-15.0)
[2018-08-19 10:37] LABS: INR 1.14 (0.83-1.16)
[2018-08-19] MEDS ORDERED: PROPOFOL/EMULSION 500 MG/50 ML BOTTLE IV ONE (10:48)
[2018-08-19] MEDS ORDERED: PROPOFOL 200 MG/20 ML VIAL ONE (10:48)
[2018-08-19] MEDS ORDERED: REMIFENTANIL HCL 1 MG VIAL ONE (10:48)
[2018-08-19] MEDS ORDERED: fentaNYL 100 MCG/2 ML INJ ONE (10:48)
[2018-08-19] MEDS ORDERED: ROCURONIUM 50 MG/5 ML VIAL ONE (10:48)
[2018-08-19] MEDS ORDERED: ONDANSETRON 4 MG/2 ML VIAL ONE (10:48)
[2018-08-19] MEDS ORDERED: DEXAMETHASONE 4 MG/ML VIAL ONE (10:49)
[2018-08-19] MEDS ORDERED: LIDOCAINE 2% 5 ML SDV ONE (10:51)
[2018-08-19] MEDS ORDERED: PHENYLEPHRINE HCL 100 MCG/ML SYR ONE (11:04)
[2018-08-19] MEDS ORDERED: ePHEDrine SULFATE 25 MG/5 ML SYR ONE ×2 (11:17→11:45)
--- NOTE | 2018-08-19 12:46 | POSTOPPROG ---
Post Op Note Date of Operation: 08/19/18 Surgeon: Salvatore Mcginnis Program Manager: Rajani Coyne Anesthesiologist: Gael Clark Anesthesia: GET(General Endotracheal) Pre-op Diagnosis: AAA, need for exposure for stent graft repair Post-op Diagnosis: same Procedure: B femoral artery exposures and closures Findings: mostly soft femoral arteries c hard plaque more proximally Inf/Abcess present in the surg proc area at time of surgery?: No EBL: 50-100 Complications: none Bowel Protocol: N/A Clean Closure Performed: N/A
[2018-08-19] MEDS ORDERED: HEPARIN 10,000 UNIT/10 ML MDV (1,000 UNIT/ML) ONE (12:56)
[2018-08-19] MEDS ORDERED: PROTAMINE SULFATE 50 MG/5 ML VIAL IVP ONE (14:04)
[2018-08-19] MEDS ORDERED: HYDROmorphONE/DILAUDID 1 MG/ML INJ IVP PRN (14:38)
[2018-08-19] MEDS ORDERED: ONDANSETRON 4 MG/2 ML VIAL IVP PRN ×2 (14:38→14:47)
[2018-08-19] MEDS ORDERED: NS 1,000 ML IV SCH (14:45)
[2018-08-19] MEDS ORDERED: PROMETHAZINE HCL 25 MG/ML INJ IVP PRN (14:47)
[2018-08-19] MEDS ORDERED: fentaNYL 100 MCG/2 ML INJ IVP PRN (14:47)
[2018-08-19] MEDS ORDERED: ACETAMINOPHEN 500 MG TAB PO PRN (14:47)
[2018-08-19] MEDS ORDERED: LR 500 ML IV PRN (14:47)
[2018-08-19] MEDS ORDERED: PHENYLEPHRINE HCL 100 MCG/ML SYR IVP PRN (14:47)
[2018-08-19] MEDS ORDERED: NALOXONE HCL 0.4 MG/ML INJ IVP PRN (14:47)
[2018-08-19] MEDS ORDERED: HYDROCODONE/APAP 5/325 TAB PO PRN (14:47)
--- NOTE | 2018-08-19 14:48 | POSTANESTH ---
Post Anesthetic Evaluation Cardiovascular Status: Normal, Stable Respiratory Status: Similar to Pre-op Cond. Level of Consciousness/Mental Status: Can Participate in Eval Pain Control: Adequate, Prn Tx Ordered Nausea/Vomiting Control: Adequate, Prn Tx Ordered Complications Possibly Related to Anesthesia: None Noted
[2018-08-19] MEDS ORDERED: LACTULOSE 20 GM/30 ML UDCUP PO PRN (15:01)
[2018-08-19] MEDS ORDERED: POLYETHYLENE GLYCOL 3350 17 GM PKT PO PRN (15:01)
[2018-08-19] MEDS ORDERED: BISACODYL 10 MG SUPP PR PRN (15:01)
[2018-08-19] MEDS ORDERED: MAGNESIUM HYDROXIDE 30 ML UDCUP PO PRN (15:01)
--- NOTE | 2018-08-19 15:04 | PDRADPN ---
Radiology Procedure Note Date of Procedure: 08/19/18 Radiologist: Kianna Toure Anesthesia: GET(General Endotracheal) Pre-op Diagnosis: AAA Post-op Diagnosis: SAME Indication: ENLARGING ANEURYSM Procedure: ENDOVASCULAR REPAIR Finding(s): THREE PIECE DEVICE USED Inf/Abcess present in the surg proc area at time of surgery?: No
--- NOTE | 2018-08-19 16:48 | PDMN ---
Medical Necessity Medical necessity: [facility] IP only; cpt [id number] AAA
[2018-08-19] MEDS: CEPACOL LOZENGE PO PRN ×2 (16:59→18:07)
[2018-08-19] MEDS: ZOLPIDEM TARTRATE 5 MG TAB PO SCH (21:27)
[2018-08-19] MEDS: DOCUSATE SODIUM 100 MG CAP PO SCH (21:27)
--- NOTE | 2018-08-19 22:00 | SOAPPROG ---
SOAP Progress Note Assessment/Plan: Assessment: POSTOP DOING WELL/ ALERT, EATING URINE BLOODY WOUNDS OK AFEBRILE, VS STABLE FULL PULSES Plan:TO MEDSURG IN AM 08/19/18 21:58 Objective: Vital Signs Temp Pulse Resp BP Pulse Ox 36.7 C 75 15 93/52 L 93 08/19/18 15:50 08/19/18 21:00 08/19/18 21:00 08/19/18 21:00 08/19/18 21:00 Laboratory Results 08/19/18 18:35 08/19/18 10:01 08/18/18 08/19/18 08/20/18 05:59 05:59 05:59 Intake Total 2350 Output Total 825 Balance 1525 PT 14.1 SEC (12.0-15.0) 08/19/18 10:01 INR 1.14 (0.83-1.16) 08/19/18 10:01 ICD10 Worksheet Patient Problems: Problems Problem Status Onset Chest pain Acute Encounter for cardioversion procedure Acute Paroxysmal atrial flutter Acute
[2018-08-19] MEDS: ROSUVASTATIN CALCIUM 20 MG TAB PO SCH (22:55)
[2018-08-20 04:59] LABS: PLATELET COUNT 111 10^3/uL (150-400)
--- NOTE | 2018-08-20 08:39 | SOAPPROG ---
SOAP Progress Note Assessment/Plan: Assessment/Plan: 83 Y M s/p AAA stent graft repair, B femoral a. exposures and closures, POD#1. +hematuria. Difficult catheter insertion yesterday. Done with IR assistance. Not clearing rapidly. Getting urology consult. Wounds intact. Dressing change. Some serosanguinous drainage on R groin dressing , but groin is soft. Regular diet. Up ad diony. [place] [facility] [place] S: didn't sleep well. O: alert, nad no wob rrr abd soft, nt groins see above palpable pedal pulses 08/20/18 08:36 Objective: Vital Signs Temp Pulse Resp BP Pulse Ox 36.8 C 66 20 91/57 L 94 08/20/18 01:00 08/20/18 06:00 08/20/18 06:00 08/20/18 06:00 08/20/18 06:00 Laboratory Results 08/20/18 04:50 08/20/18 04:50 08/19/18 08/20/18 08/21/18 05:59 05:59 05:59 Intake Total 3781 Output Total 1360 Balance 2421 PT 14.1 SEC (12.0-15.0) 08/19/18 10:01 INR 1.14 (0.83-1.16) 08/19/18 10:01 ICD10 Worksheet Patient Problems: Problems Problem Status Onset Chest pain Acute Encounter for cardioversion procedure Acute Paroxysmal atrial flutter Acute
[2018-08-20] MEDS: DOCUSATE SODIUM 100 MG CAP PO SCH ×2 (09:00→21:44)
[2018-08-20] MEDS: ASPIRIN EC 81 MG TAB PO SCH (09:00)
[2018-08-20] MEDS ORDERED: ALBUTEROL 3 ML DEYVIAL IH ONE (09:30)
[2018-08-20] MEDS: METOPROLOL SUCCINATE XR 25 MG TAB PO SCH (10:01)
--- NOTE | 2018-08-20 11:51 | ASMTCMCOM ---
CM Note CM Note Notes: Pt is an 83 yo M who presents with AAA. Pt underwent stent graft repair of aneurysm. Pt lives at home with his . Pt reports he has children but none live locally. CM asked pt if he had ever completed copies of Advanced directives or MDPOA paperwork. 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 CM spoke with pt's RN who reports pt and his have memory issues. CM to follow and continue to help plan for safe discharge planning. No PT/OT ordered at this time. Plan: TBD Date Signed: 08/20/2018 11:50 AM Electronically Signed By:TAYLOR Reed
--- NOTE | 2018-08-20 16:40 | SOAPPROG ---
SOAP Progress Note Assessment/Plan: Assessment: PPD 1 s/p endovascular repair of AAA with bilateral femoral cutdown. Difficult wong placement yesterday prior to surgery, eventually necessitating IR/catheter/wire/fluro guided placement. Doing well from AAA standpoint. Persistent significant hematuria with possible bladder spasm and pain. Bladder scan reportedly showing "empty bladder." Plan: 1. Keep wong in 2. Will obtain formal bladder US to evaluate for clot burden. If significant, might need to initiate CBI +/- TPA lysis 3. Might need urology consult depending on scan result. 08/20/18 16:37 Subjective: mild amount of groin pain. "pain with urination." Objective: Vital Signs Temp Pulse Resp BP Pulse Ox 36.9 C 85 20 99/58 L 90 L 08/20/18 15:27 08/20/18 15:27 08/20/18 15:27 08/20/18 15:27 08/20/18 15:27 Laboratory Results 08/20/18 04:50 08/20/18 04:50 08/19/18 08/20/18 08/21/18 05:59 05:59 05:59 Intake Total 3781 Output Total 1360 350 Balance 2421 -350 PT 14.1 SEC (12.0-15.0) 08/19/18 10:01 INR 1.14 (0.83-1.16) 08/19/18 10:01 labs noted. urine output still quite bloody. no significant clots. \\ abd soft. groins without significant hematoma. pulses normal. ICD10 Worksheet Patient Problems: Problems Problem Status Onset Chest pain Acute Encounter for cardioversion procedure Acute Paroxysmal atrial flutter Acute
[2018-08-20] MEDS: ROSUVASTATIN CALCIUM 20 MG TAB PO SCH (21:44)
[2018-08-20] MEDS: ZOLPIDEM TARTRATE 5 MG TAB PO SCH (21:44)
--- NOTE | 2018-08-21 06:34 | GCON ---
[f rep st] CONSULTATION DATE OF CONSULTATION: 08/20/2018 REASON FOR CONSULT: Gross hematuria. HISTORY OF PRESENT ILLNESS: He is a pleasant 83-year-old male who was admitted to the hospital for a 5.5 x 5.1 cm infrarenal abdominal aortic aneurysm. He had this treated interventionally with Dr. Milly montaño. He had some difficulty with catheter placement and Dr. Toure was able to place this with some diffi culty. He has been having gross hematuria without clots since the placement of this catheter. Nitafaith frankie's HPI says that he has seen Urology; however, he tells me he has not seen Urology in many years. Denies prostate cancer, prostate surgeries; however, says he has had discolored urine for the past ye ar. Former smoker, but without a cystoscopy workup for this. This patient has previously seen nayla owens in the office for gross hematuria and has had a partial workup with our office, during which I foun d that he had an abdominal aortic aneurysm and I recommended that he have this worked up. PAST MEDICAL HISTORY: Coronary artery disease, COPD, degenerative disk disease, hernia repair, hyper tension, insomnia, left bundle branch block, obstructive sleep apnea, pulmonary hypertension, and sup raventricular tachycardia. PAST SURGICAL HISTORY: Bladder, finger, heart, hernia. MEDICATIONS: Ambien, aspirin, Crestor, metoprolol, omeprazole. ALLERGIES: No known drug allergies. FAMILY HISTORY: Not urologically pertinent. 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 Drinks socially. Exercises regularly. Denies tobacco or illicit drugs. REVIEW OF SYSTEMS: Negative except as mentioned in the HPI with the addition of abdominal tenderness . PHYSICAL EXAMINATION: VITAL SIGNS: Blood pressure is 93/50, heart rate 64, respirations 20, oxygen 2 on nasal cannula. GENERAL: This is a well-developed, well-nourished male, in no acute distress. HEENT: Normocephalic, atraumatic. Extraocular movements intact. NECK: Supple. No lymphadenopathy . Trachea midline. RESPIRATORY: Not on oxygen at time of exam. The vitals were taken while on oxy gen. No accessory respiratory muscle use. CARDIAC: Regular rate and rhythm. No lower extremity ed steve. No obvious JVD. ABDOMEN: Soft, mildly tender from recent procedure. No distention. No hepat osplenomegaly. : No CVA tenderness. No bladder distention or tenderness to palpation frankly. B loody urine in the catheter bag, but without any clots. Nurse confirms no clots. INTEGUMENT: No ob vious rashes or lesions. NEUROLOGIC: Alert and oriented. MUSCULOSKELETAL: Upright while examined, but moving upper extremities without difficulty. LABORATORY DATA AND IMAGING: Labs: His white blood cell count is 8.3, red blood cells 3.5, hemoglob in 11, hematocrit 33, platelets 11. Coags: PT 14.1. Chemistry: Sodium 138, potassium 4.4, chlorid e 108, carbon dioxide 25, anion gap 5, BUN 18, creatinine 1.1, glucose is 121, calcium 8. Urinalysis is positive for blood, negative for nitrites or leukocytes. The patient had a CT of the abdomen and pelvis. ASSESSMENT: Gross hematuria. PLAN: Keep the catheter in place until the patient either clears his urine, and if not we may consid er having to decrease anticoagulation and/or starting CBI. This patient is definitely in need of a c ystoscopy when he recovers from this procedure and to be seen outpatient. /[id number]/MODL
--- NOTE | 2018-08-21 09:14 | SOAPPROG ---
SOAP Progress Note Assessment/Plan: Assessment: Gross hematuria Plan: Will have nurse continue with q 4 water hand irrigation. Case discussed with Dr Hunt. 08/21/18 09:11 Subjective: Patient says he is ok. Objective: Vital Signs Temp Pulse Resp BP Pulse Ox 37.4 C 88 14 105/49 L 91 L 08/21/18 04:40 08/21/18 04:40 08/21/18 04:40 08/21/18 04:40 08/21/18 04:40 Laboratory Results 08/21/18 04:35 08/20/18 04:50 08/20/18 08/21/18 08/22/18 05:59 05:59 05:59 Intake Total 3781 475 Output Total 1360 1250 Balance 2421 -775 PT 14.1 SEC (12.0-15.0) 08/19/18 10:01 INR 1.14 (0.83-1.16) 08/19/18 10:01 Physical Exam - Physical Exam General Appearance: alert, no apparent distress EENT: PERRL/EOMI Neck: non-tender Respiratory: normal breath sounds, No respiratory distress Abdomen: non-tender Male Genitalia: other (frankly bloody appearing urine without clots) ICD10 Worksheet Patient Problems: Problems Problem Status Onset Chest pain Acute Encounter for cardioversion procedure Acute Paroxysmal atrial flutter Acute
[2018-08-21] MEDS: DOCUSATE SODIUM 100 MG CAP PO SCH ×2 (09:26→21:18)
[2018-08-21] MEDS: ASPIRIN EC 81 MG TAB PO SCH (09:26)
[2018-08-21] MEDS: METOPROLOL SUCCINATE XR 25 MG TAB PO SCH (09:26)
--- NOTE | 2018-08-21 09:39 | SOAPPROG ---
SOAP Progress Note Assessment/Plan: Assessment/Plan: 83 Y M s/p AAA endorvascular stent graft repair, B femoral a. exposures and closures, POD#2 Gross hematuria. Appreciate urology input. RN to perform q4hr bladder irrigation. Will need cysto as outpt. Groin incisions are well dressed. Small amount of shadowing on R groin dressing. Ok to change as needed. Ok to leave open to air if dry. Ambulating well, but reports leaking blood from Polk cath insertion site when he gets up. Continue inpt for hematuria. S: Incisional pain well controlled. Frustrated about hematuria. O: Alert Afebrile RRR No increased WOB Groin incisions well dressed. Strong palpable pedal pulses. 08/21/18 09:35 Objective: Vital Signs Temp Pulse Resp BP Pulse Ox 37.0 C 92 16 114/64 88 L 08/21/18 08:00 08/21/18 08:00 08/21/18 08:00 08/21/18 08:00 08/21/18 08:00 Laboratory Results 08/21/18 04:35 08/20/18 04:50 08/20/18 08/21/18 08/22/18 05:59 05:59 05:59 Intake Total 3781 475 Output Total 1360 1250 Balance 2421 -775 PT 14.1 SEC (12.0-15.0) 08/19/18 10:01 INR 1.14 (0.83-1.16) 08/19/18 10:01 ICD10 Worksheet Patient Problems: Problems Problem Status Onset Chest pain Acute Encounter for cardioversion procedure Acute Paroxysmal atrial flutter Acute
[2018-08-21] MEDS: ROSUVASTATIN CALCIUM 20 MG TAB PO SCH (21:18)
[2018-08-21] MEDS: ZOLPIDEM TARTRATE 5 MG TAB PO SCH (21:18)
[2018-08-21] MEDS: GUAIFENESIN/DM 10 ML UDCUP PO PRN (23:48)
[2018-08-22] MEDS: GUAIFENESIN/DM 10 ML UDCUP PO PRN ×2 (08:35→21:47)
[2018-08-22] MEDS: CEPACOL LOZENGE PO PRN (08:35)
[2018-08-22] MEDS: DOCUSATE SODIUM 100 MG CAP PO SCH ×2 (08:35→21:47)
[2018-08-22] MEDS: METOPROLOL SUCCINATE XR 25 MG TAB PO SCH (08:35)
[2018-08-22] MEDS: ASPIRIN EC 81 MG TAB PO SCH (08:35)
--- NOTE | 2018-08-22 08:56 | SOAPPROG ---
SOAP Progress Note Assessment/Plan: Assessment: Gross hematuria Plan: Order US to reassess clot size. Consider cath placement for CBI vs clot evacuation 08/22/18 08:55 Subjective: ok Objective: Vital Signs Temp Pulse Resp BP Pulse Ox 37.3 C 84 20 98/53 L 87 L 08/22/18 08:16 08/22/18 08:35 08/22/18 08:16 08/22/18 08:35 08/22/18 08:16 Laboratory Results 08/21/18 04:35 08/20/18 04:50 08/21/18 08/22/18 08/23/18 05:59 05:59 05:59 Intake Total 475 1450 Output Total 1250 1000 Balance -775 450 PT 14.1 SEC (12.0-15.0) 08/19/18 10:01 INR 1.14 (0.83-1.16) 08/19/18 10:01 Physical Exam - Physical Exam General Appearance: alert, no apparent distress Respiratory: normal breath sounds, No respiratory distress Male Genitalia: other (grossly bloody urine without clots) Skin: normal color, warm/dry ICD10 Worksheet Patient Problems: Problems Problem Status Onset Chest pain Acute Encounter for cardioversion procedure Acute Paroxysmal atrial flutter Acute
--- NOTE | 2018-08-22 11:28 | SOAPPROG ---
SOAP Progress Note Assessment/Plan: Assessment/Plan: 83 Y M s/p AAA endorvascular stent graft repair, B femoral a. exposures and closures, POD#2 Gross hematuria. Appreciate urology input. Q4 hour bladder irrigation. U/S confirms persistent thrombus in bladder. Groin incisions cdi. Ambulating well, but reports leaking blood from Polk cath insertion site when he gets up. Continue inpt for hematuria. S: Incisional pain well controlled. Frustrated about hematuria. O: Alert Afebrile RRR No increased WOB Groin cdi with joao intact. Diffuse ecchymosis throughout groins and scrotum. Strong palpable pedal pulses. 08/22/18 11:27 Objective: Vital Signs Temp Pulse Resp BP Pulse Ox 37.3 C 84 20 98/53 L 87 L 08/22/18 08:16 08/22/18 08:35 08/22/18 08:16 08/22/18 08:35 08/22/18 08:16 Laboratory Results 08/21/18 04:35 08/20/18 04:50 08/21/18 08/22/18 08/23/18 05:59 05:59 05:59 Intake Total 475 1450 Output Total 1250 1000 Balance -775 450 PT 14.1 SEC (12.0-15.0) 08/19/18 10:01 INR 1.14 (0.83-1.16) 08/19/18 10:01 ICD10 Worksheet Patient Problems: Problems Problem Status Onset Chest pain Acute Encounter for cardioversion procedure Acute Paroxysmal atrial flutter Acute
--- NOTE | 2018-08-22 11:58 | ASMTCMCOM ---
CM Note CM Note Notes: Spoke with RN, pt may go back to OR, urine output still bloody. Otherwise pt is still ambulating independently in room. No therapies ordered, anticipate pt will dc home w/support of when medically stable. CM available for any changes. DC Plan: Independent Date Signed: 08/22/2018 11:58 AM Electronically Signed By:Elyse Reynoso RN
--- NOTE | 2018-08-22 11:58 | SOAPPROG ---
ZAID Progress Note Assessment/Plan: Assessment: PPD 1 s/p endovascular repair of AAA with bilateral femoral cutdown. Difficult wong placement yesterday prior to surgery, eventually necessitating IR/catheter/wire/fluro guided placement. Doing well from AAA standpoint. Persistent significant hematuria with possible bladder spasm and pain. Bladder scan reportedly showing "empty bladder." Plan: 1. Keep wong in 2. Will obtain formal bladder US to evaluate for clot burden. If significant, might need to initiate CBI +/- TPA lysis 3. Might need urology consult depending on scan result. 08/20/18 16:37 08/22/18 11:56 Continued clot in bladder. ? Continued bleeding into bladder ? Appreciate urology input. Will discuss with urology today re: cystoscopy vs CBI Reassured patient re: medial thigh bruising. No signs of accumulating hematoma. Incisions healing well. Subjective: Concerned about hematuria and thigh bruising. Otherwise no issues. Objective: Vital Signs Temp Pulse Resp BP Pulse Ox 37.0 C 85 18 117/57 L 88 L 08/22/18 11:32 08/22/18 11:32 08/22/18 11:32 08/22/18 11:32 08/22/18 11:32 Laboratory Results 08/21/18 04:35 08/20/18 04:50 08/21/18 08/22/18 08/23/18 05:59 05:59 05:59 Intake Total 475 1450 Output Total 1250 1000 Balance -775 450 PT 14.1 SEC (12.0-15.0) 08/19/18 10:01 INR 1.14 (0.83-1.16) 08/19/18 10:01 HCT decreasing; continued significantly gross hematuria. Repeat US today shows clot size in bladder is same as US two days ago. ICD10 Worksheet Patient Problems: Problems Problem Status Onset Chest pain Acute Encounter for cardioversion procedure Acute Paroxysmal atrial flutter Acute
[2018-08-22] MEDS ORDERED: LR 1,000 ML IV ONE (15:05)
[2018-08-22] MEDS ORDERED: LIDOCAINE 2% JELLY 20 ML (UROJECT) ONE (15:25)
[2018-08-22] MEDS ORDERED: PROPOFOL 200 MG/20 ML VIAL ONE (16:38)
[2018-08-22] MEDS ORDERED: fentaNYL 100 MCG/2 ML INJ ONE (16:38)
[2018-08-22] MEDS ORDERED: LIDOCAINE 2% 2 ML INJ ONE (16:38)
[2018-08-22] MEDS ORDERED: DEXAMETHASONE 4 MG/ML VIAL ONE (16:48)
[2018-08-22] MEDS ORDERED: ONDANSETRON 4 MG/2 ML VIAL ONE (16:48)
--- NOTE | 2018-08-22 16:51 | POSTANESTH ---
Post Anesthetic Evaluation Cardiovascular Status: Normal, Stable Respiratory Status: Normal, Stable Level of Consciousness/Mental Status: Can Participate in Eval Pain Control: Adequate, Prn Tx Ordered Nausea/Vomiting Control: Adequate, Prn Tx Ordered Complications Possibly Related to Anesthesia: None Noted
--- NOTE | 2018-08-22 16:51 | PDANEPAE ---
ANE Past Medical History - Cardiovascular History Hx Hypertension: Yes Hx Arrhythmias: Yes Hx Chest Pain: No Hx Coronary Artery / Peripheral Vascular Disease: Yes Hx CHF / Valvular Disease: No Hx Palpitations: Yes Cardiovascular History Comment: htn. afib. svt. hyperlipidemia. followed by [facility] - Pulmonary History Hx COPD: Yes Hx Asthma/Reactive Airway Disease: No Hx Recent Upper Respiratory Infection: No Hx Oxygen in Use at Home: No Hx Sleep Apnea: Yes Sleep Apnea Screening Result - Last Documented: Positive Pulmonary History Comment: estefania positive doesn't use any devices - Neurologic History Hx Cerebrovascular Accident: No Hx Seizures: No Hx Dementia: No - Endocrine History Hx Diabetes: No Hypothyroid: No Hyperthyroid: No Obesity: no - Renal History Hx Renal Disorders: No - Liver History Hx Hepatic Disorders: No - Neurological & Psychiatric Hx Hx Neurological and Psychiatric Disorders: No - Cancer History Hx Cancer: No - Congenital Disorder History Hx Congenital Disorders: No - GI History GERD: no Hx Gastrointestinal Disorders: Yes Gastrointestinal History Comment: hx of colonoscopy. colon polyps - Other Health History Other Health History: wears glasses. wears bilateral hearing aides. CAHUILLA - Chronic Pain History Chronic Pain: No - Surgical History Prior Surgeries: 06/26/16 ep study with Pooja. 11/22/15 colonoscopy with [facility]. 10/22/08 bilateral ing hernia repair with [facility]. TONSILLECTOMY. cardiac stents x3. LT CATARACT ANE Review of Systems Review of Systems: - Exercise capacity METS (RN): 4 METS ANE Patient History - Allergies Allergies/Adverse Reactions: shrimp Allergy (Verified 08/19/18 10:10) Hives - Home Medications Home Medications: Rosuvastatin Calcium [Crestor 20mg (*)] 20 mg PO HS 10/27/11 [Last Taken ] Metoprolol Succinate 25 mg PO DAILY 06/18/16 [Last Taken 08/19/18 07:30] Aspirin EC [Aspirin EC 81 mg (*)] 81 mg PO DAILY 08/12/18 [Last Taken 08/19/18 07:30] Zolpidem Tartrate [Ambien 5MG (*)] 5 mg PO HS PRN 08/19/18 [Last Taken 08/18/18] - NPO status NPO Since - Liquids (Date): 08/22/18 NPO Since - Liquids (Time): 00:00 NPO Since - Solids (Date): 08/22/18 NPO Since - Solids (Time): 00:00 - Smoking Hx Smoking Status: Former smoker - Alcohol Use Alcohol Use: Rarely - Family Anes Hx Family Hx Anesthesia Complications: none ANE Labs/Vital Signs - Labs Result Diagrams: 08/21/18 04:35 08/20/18 04:50 - Vital Signs Blood Pressure: 111/57 Heart Rate: 84 Respiratory Rate: 16 O2 Sat (%): 84 Height: 177.8 cm Weight: 74.843 kg ANE Physical Exam - Airway Neck exam: FROM Mallampati Score: Class 2 Mouth exam: normal dental/mouth exam - Pulmonary Pulmonary: no respiratory distress, no rales or rhonchi, clear to auscultation - Cardiovascular Cardiovascular: regular rate and rhythym, no murmur, rub, or gallop - ASA Status ASA Status: III ANE Anesthesia Plan Anesthesia Plan: GA w LMA Total IV Anesthesia: No
--- NOTE | 2018-08-22 18:03 | POSTOPPROG ---
Post Op Note Date of Operation: 08/22/18 (dictated) Surgeon: Chele Eng Anesthesia: LMA Pre-op Diagnosis: clot retention Post-op Diagnosis: same and TCC of the bladder Procedure: Evacuation of clots, TURBT large bladder tumor Findings: evacuated 250 cc of clot, TCC of the bladder Inf/Abcess present in the surg proc area at time of surgery?: No EBL: Minimal Drains: Other (wong, 20 cc balloon) Specimen(s): clot and bladder lesion
[2018-08-22] MEDS ORDERED: ALBUTEROL 3 ML DEYVIAL IH PRN (18:05)
[2018-08-22] MEDS ORDERED: fentaNYL 100 MCG/2 ML INJ IVP PRN (18:05)
[2018-08-22] MEDS ORDERED: ONDANSETRON 4 MG/2 ML VIAL IVP PRN (18:05)
[2018-08-22] MEDS ORDERED: NALOXONE HCL 0.4 MG/ML INJ IVP PRN (18:05)
[2018-08-22] MEDS ORDERED: oxyCODONE IR 5 MG TAB PO PRN (18:05)
[2018-08-22] MEDS ORDERED: PROMETHAZINE HCL 25 MG/ML INJ IVP PRN (18:05)
[2018-08-22] MEDS ORDERED: PHENYLEPHRINE HCL 100 MCG/ML SYR IVP PRN (18:05)
[2018-08-22] MEDS ORDERED: METOCLOPRAMIDE 10 MG/2 ML VIAL IVP PRN (18:05)
[2018-08-22] MEDS ORDERED: HYDROmorphONE/DILAUDID 1 MG/ML INJ IVP PRN (18:05)
[2018-08-22] MEDS ORDERED: NS 500 ML IV PRN (18:05)
--- NOTE | 2018-08-22 19:15 | GOP ---
[f rep st] OPERATIVE REPORT DATE OF OPERATION: 08/22/2018 SURGEON: Cehle Eng MD PREOPERATIVE DIAGNOSIS: Urinary clot retention. 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 PROCEDURE PERFORMED: FINDINGS: SPECIMENS: Sent to pathology. DESCRIPTION OF PROCEDURE: The procedure was begun after appropriate time-out and undergoing general anesthesia. He did have meatal stenosis that was dilated to 23 and 24-Estonian and then I was able to pass the resectoscope element and I evacuated approximately 250 mL of clot. Then at that point, on i nspection of the bladder, he had some mild bleeding at the bladder neck area. On inspection of the b ladder, he had a large tumor of the right lateral wall of the bladder that went from just above the t rigone lateral to the trigone and across the midline and involved part of the bladder neck, and then he had multiple lesions at the left side of the bladder and then several lesions at the dome. I rese cted the large tumor, sent it for pathologic assessment, then fulgurated the remaining tumors. At th e end, hemostasis was noted. There was no perforation of the bladder and no bleeding site of the [place] state. Specimen was sent to Pathology. A Uro-jet placed in the urethra and a 3-way catheter with 20 mL balloon inflated and irrigated clear. I will discuss the findings with his and will jennifer chadwick his admission overnight and maybe consider discharge home tomorrow or the next day depending on uri nary appearance. /[id number]/MODL
[2018-08-22] MEDS: ZOLPIDEM TARTRATE 5 MG TAB PO SCH (21:47)
[2018-08-22] MEDS: ROSUVASTATIN CALCIUM 20 MG TAB PO SCH (21:47)
[2018-08-22] MEDS: OXYCODONE/APAP 5/325 TAB PO PRN (21:49)
[2018-08-23] MEDS: OXYCODONE/APAP 5/325 TAB PO PRN ×2 (03:20→06:50)
[2018-08-23] MEDS: GUAIFENESIN/DM 10 ML UDCUP PO PRN (05:31)
[2018-08-23] MEDS: ASPIRIN EC 81 MG TAB PO SCH (09:13)
[2018-08-23] MEDS: DOCUSATE SODIUM 100 MG CAP PO SCH (09:13)
[2018-08-23] MEDS: METOPROLOL SUCCINATE XR 25 MG TAB PO SCH (09:13)
--- NOTE | 2018-08-23 10:10 | SOAPPROG ---
SOAP Progress Note Assessment/Plan: Assessment/Plan: 83 Y M s/p AAA endorvascular stent graft repair, B femoral a. exposures and closures, POD#4 Gross hematuria. S/p cysto yesterday. Thrombus was removed. Also found and resected bladder tumor. Urine is now clear yellow. Groin incisions cdi. Dispo: discharge home today after wong removal and void. Follow up in one week for staple removal. S: Incisional pain well controlled. Eager to be discharge. O: Alert Afebrile RRR No increased WOB Groin cdi with joao intact. Diffuse ecchymosis throughout groins and scrotum. Strong palpable pedal pulses. 08/23/18 10:07 Objective: Vital Signs Temp Pulse Resp BP Pulse Ox 36.4 C 62 16 117/66 96 08/23/18 08:00 08/23/18 08:00 08/23/18 08:00 08/23/18 08:00 08/23/18 08:00 Laboratory Results 08/21/18 04:35 08/20/18 04:50 08/22/18 08/23/18 08/24/18 05:59 05:59 05:59 Intake Total 1450 970 Output Total 1000 575 450 Balance 450 395 -450 PT 14.1 SEC (12.0-15.0) 08/19/18 10:01 INR 1.14 (0.83-1.16) 08/19/18 10:01 ICD10 Worksheet Patient Problems: Problems Problem Status Onset Bladder neoplasm Acute Bladder neoplasm Acute Chest pain Acute Encounter for cardioversion procedure Acute Paroxysmal atrial flutter Acute
--- NOTE | 2018-08-23 11:01 | GDS ---
[f rep st] DISCHARGE SUMMARY Patient was originally admitted for an abdominal aortic aneurysm found on workup of CAT scan done in our office. He underwent a stent graft abdominal aortic aneurysm repair by Dr. Toure in interventional radiology, underwent this without difficulty or complication. However, patient did have gross hemat uria with catheter placement which was difficult to clear. He was taken to the operating room by Dr. Eng for a presumed clot evacuation. It was also discovered that he had a bladder tumor at that ti pa which was resected. His catheter is to be removed this morning, and if patient voids, he will be discharged home in good condition to follow up with our office in 1 week. If the patient is unable t o void, we will replace the catheter, and again, have him follow up with our office early next week f or pathology review and possible catheter management if needed. He is also to follow up with his carine cooper regarding his abdominal aortic aneurysm repair. /[id number]/MODL
[2018-08-23 11:50] VITALS: BP 104/60
--- NOTE | 2018-08-23 11:50 | PDHOMEO2F ---
Home Oxygen Face to Face Home Orders: I certify that a physician or a nurse practitioner or physician's assistant store manager has had a [id number] encounter with this patient on the date of this order due to the diagnosis listed, which relates to the primary reason the patient requires home oxygen. Alternative treatments have been tried, or considered, and deemed ineffective. It is anticipated that supplemental oxygen will result in improvement with treatment. Home oxygen qualifying diagnosis: Hypoxia SpO2 on room air (%): 82 Frequency of home oxygen needed: continuous Home oxygen liters per minute: 2 Home oxygen delivery device: nasal cannula Concentrator: No E-tanks for mobility and back up: Yes If ordering portable O2, is the patient mobile in the home?: Yes I certify that, based on these findings, the home oxygen is medically necessary for this patient for the following length of time. Length of time home oxygen needed: 1 month
--- NOTE | 2018-08-27 14:38 | GOP ---
[f rep st] OPERATIVE REPORT DATE OF OPERATION: 08/19/2018 SURGEON: Salvatore Mcginnis MD PREOPERATIVE DIAGNOSIS: Enlarging abdominal aortic aneurysm. POSTOPERATIVE DIAGNOSIS: Enlarging abdominal aortic aneurysm. PROCEDURE PERFORMED: 1. Bilateral femoral artery exposure for endovascular abdominal aortic aneurysm repair. 2. Bilateral common femoral artery repairs. FINDINGS: The patient was found to have large vessels, had good pulses postoperatively. DESCRIPTION OF PROCEDURE: The patient was taken to the operating room where he received a satisfacto ry general endotracheal anesthesia by Dr. Clark. He was placed in supine position, prepped and draped in the usual sterile fashion. Bilateral femoral incision was made with vertical incisions ov er the femoral artery. Dissection extended down into the groin and the common femoral, superficial f emoral, and profunda femoris arteries were all dissected free and encircled. Hemostasis was assured. Both groins were handled in similar manner. The case was turned over to Dr. Toure for endovascular s tent placement, and when she was completed, we returned. The stents were removed with vascular control with vessel loops. The arteriotomy sites were then rep aired with 4-0 Prolene running sutures. Flow was first established through the profunda femoris and then through the superficial femoral. All vessels had been flushed prior to repair of the closure. Hemostasis was assured. Heparin was then reversed with protamine as the patient had been systemicall y heparinized. The wounds were irrigated. Hemostasis was assured. The wounds were closed in layers using 2-0 Vicryl for the deep fascia, 3-0 Vicryl for the subcu, and skin joao for the skin. All wounds were infiltrated with 0.5% Marcaine. He tolerated the procedure well, taken to the recovery r oom in good condition. It should be noted that he had some bloody urine after a difficult [place] inse rtion prior to the procedure. /[id number]/MODL
== END 2018-08-23 15:00 | disposition home or self-care (01) | DRG 269 ==
LOC: FSGY 08:26 → F2N 15:01 → F3E 08-20 14:58
PROVIDERS: ADMIT Radiology Diagnostic Radiology; ATTEND Radiology Diagnostic Radiology
PROC: 04V03D6 (ICD-10-PCS; principal; 2018-08-22 16:30)
PROC: 0TBB8ZX Excision of Bladder, Via Natural or Artificial Opening Endoscopic, Diagnostic (ICD-10-PCS; 2018-08-22 16:30)
PROC: 0T5B8ZZ Destruction of Bladder, Via Natural or Artificial Opening Endoscopic (ICD-10-PCS; 2018-08-22 16:30)
DX: I71.4 Abdominal aortic aneurysm, without rupture (principal); C67.2 Malignant neoplasm of lateral wall of bladder; R31.0 Gross hematuria; I25.10 Atherosclerotic heart disease of native coronary artery without angina pectoris; I10 Essential (primary) hypertension; J44.9 Chronic obstructive pulmonary disease, unspecified; G47.33 Obstructive sleep apnea (adult) (pediatric); G47.00 Insomnia, unspecified; I27.20 Pulmonary hypertension, unspecified; Z87.891 Personal history of nicotine dependence
CPT/HCPCS: C1725; C1769; C1893; C1894; J0690; J1100; J1644; J2370; J2405; J2704; J2720; J3010; Q9967

== ENCOUNTER 2018-08-25 19:10 | Emergency (ER) | payer OTHER, MEDICARE ==
--- NOTE | 2018-08-25 19:10 | EDPHY ---
H & P Time Seen by Provider: 08/25/18 19:11 Constitutional: Initial Vital Signs Temperature (C) 36.5 C 08/25/18 19:12 Heart Rate 79 08/25/18 19:12 Respiratory Rate 16 08/25/18 19:12 Blood Pressure 151/89 H 08/25/18 19:12 O2 Sat (%) 92 08/25/18 19:12 O2 Delivery Mode Room Air Allergies/Adverse Reactions: shrimp Allergy (Verified 08/19/18 10:10) Hives Home Medications: Medication Instructions Recorded Rosuvastatin Calcium [Crestor 20mg 20 mg PO HS 10/27/11 (*)] Metoprolol Succinate 25 mg PO DAILY 06/18/16 Aspirin EC [Aspirin EC 81 mg (*)] 81 mg PO DAILY 08/12/18 Zolpidem Tartrate [Ambien 5MG (*)] 5 mg PO HS PRN 08/19/18 oxyCODONE/APAP 5/325 [Percocet 1 - 2 tab PO Q4 PRN #15 tab 08/23/18 5/325 (*)] Cephalexin [Keflex (RX)] 500 mg PO TID #30 cap 08/25/18 Medical Decision Making ED Course/Re-evaluation: CHIEF COMPLAINT: Inability to urinate HISTORY OF PRESENT ILLNESS: The patient is an 83 y/o male with a history of a AAA repair and bladder tumor resection repair on 08/23/18 arriving via EMS complaining of inability to urinate and constipation. The patient saw Dr. Toure, interventional radiologist, for the AAA repair and then saw Dr. Eng, urologist, for the bladder tumor resection. After the bladder surgery he wong catheter placed and was told that it could be removed once he could void. Since the surgery he has been afraid to bear down and has been unable to void urine. He also had some minor numbness, tingling, and swelling in his feet. Due to these symptoms he called EMS. EMS noted that the patient had pedal pulses. No fever, headache, body aches, lightheadedness, chest pain, heart palpitations, shortness of breath, cough, abdominal pain, paresthesias. REVIEW OF SYSTEMS: A comprehensive 10 system review of systems is otherwise negative aside from elements mentioned in the history of present illness and medical decision making. PHYSICAL EXAM: HR, BP, O2 Sat, RR. Temp noted General Appearance: Alert, well hydrated, appropriate, and non-toxic appearing. Head: Atraumatic without scalp tenderness or obvious injury Eyes: Pupils equal, round, reactive to light and accommodation, EOMI, no trauma , no injection. Ears: Clear bilaterally, no perforation, normal landmarks Nose: Atraumatic, no rhinorrhea, clear. Throat: There is no erythema or exudates, no lesions, normal tonsils, mucus membranes moist. Neck: Supple, 2+ carotid upstroke, nontender, no lymphadenopathy. Respiratory: No retractions, no distress, no wheezes, and no accessory muscle use. Lungs are clear to auscultation bilaterally. Cardiovascular: Regular rate and rhythm, no murmurs, rubs, or gallops. Bilateral carotid, radial, dorsalis pedis, and posterior tibial pulses intact. Good capillary refill all extremities. Gastrointestinal: Abdomen is soft, nontender, non-distended, no masses, no rebound, no guarding, no peritoneal signs. Musculoskeletal: Normal active ROM of all extremities, atraumatic. Neurological: Alert, appropriate, and interactive. The patient has normal DTRs and non-focal cranial nerves, motor, sensory, and cerebellar exam. Skin: No rashes, good turgor, no nodules on palpation. Past medical history: Emphysema Past surgical history: AAA repair, bladder tumor resection, cardiac stents Family history: Denies Social history: Retired, lives in [place], . DIAGNOSTICS/PROCEDURES/CRITICAL CARE TIME: Not indicated. DIFFERENTIAL DIAGNOSIS: The differential diagnosis for the patient's urinary retention included but was not limited to medication side effect, neurologic causes, outflow obstruction including prostatic hypertrophy, and infection. MEDICAL DECISION MAKING: This patient had about 450-470 mL of urine in his bladder but had several clots that came out that were obstructing his bladder. We are irrigating until urine is clean. I have started this patient on Keflex 500 mg as a prophylactic for his indwelling Wong. He has recently seen Dr. Eng who removed a bladder polyp and he had subsequent bleeding secondary to that. This is most likely the same issue. He will follow up with Dr. Eng on Sunday. 2004: Wong catheter has been placed. I have advised him to follow up with a urologist and take Keflex prophylactically. Return precautions provided; patient is comfortable with this plan. - Data Points Laboratory Results: 04/21/19 19:43 POC Hgb 11.2 gm/dL L gm/dL (13.7-17.5) POC Hct 33 % L % (40-51) POC Sodium 138 mEq/L mEq/L (135-145) POC Potassium 4.0 mEq/L mEq/L (3.3-5.0) POC Chloride 102 mEq/L mEq/L (97-110) POC Total CO2 25 mEq/L mEq/L (22-31) POC BUN 25 mg/dL H mg/dL (7-23) POC Creatinine 1.2 mg/dL mg/dL (0.7-1.3) POC Glucose 118 mg/dL H mg/dL (70-100) Medications Given: Discontinued Medications Cephalexin HCl (Keflex) 500 mg PO EDNOW ONE PRN Reason: Protocol Stop: 08/25/18 19:30 Last Admin: 08/25/18 19:46 Dose: 500 mg Point of Care Test Results: Chemistry 08/25/18 19:43 POC Sodium 138 mEq/L mEq/L (135-145) POC Potassium 4.0 mEq/L mEq/L (3.3-5.0) POC Chloride 102 mEq/L mEq/L (97-110) POC Total CO2 25 mEq/L mEq/L (22-31) POC BUN 25 mg/dL H mg/dL (7-23) POC Creatinine 1.2 mg/dL mg/dL (0.7-1.3) POC Glucose 118 mg/dL H mg/dL (70-100) ISTAT H&H 08/25/18 19:43 POC Hgb 11.2 gm/dL L gm/dL (13.7-17.5) POC Hct 33 % L % (40-51) Departure - Departure Disposition: Home, Routine, Self-Care Clinical Impression: Urinary retention Condition: Good Instructions: Urinary Retention in Men (ED), Wong Catheter Placement and Care (ED) Additional Instructions: 1. Take Keflex as prescribed. 2. Keep the catheter in place until you follow up with a urologist this week. 3. Return to the Emergency Department for fever, worsening pain, flank pain or failure to improve within 72 hours. Referrals: Chele Eng MD [Medical Doctor] - As per Instructions Prescriptions: Cephalexin [Keflex (RX)] 500 mg PO TID #30 cap Report Scribed for: Zak Webster Report Scribed by: Gianna Duong Date of Report: 08/25/18 Time of Report: 19:47
[2018-08-25] MEDS ORDERED: CEPHALEXIN 500 MG CAP PO ONE (19:29)
[2018-08-25 20:26] VITALS: BP 148/82
== END 2018-08-25 20:25 | disposition home or self-care (01) ==
LOC: EDUNIT#
PROC: 0T9B70Z Drainage of Bladder with Drainage Device, Via Natural or Artificial Opening (ICD-10-PCS; principal; 2018-08-25)
DX: N32.89 Other specified disorders of bladder (principal); Z98.890 Other specified postprocedural states
CPT/HCPCS: 82435-PO; 82565-PO; 82947-PO; 84132-PO; 84295-PO; 84520-PO; 85014-ER

== ENCOUNTER 2018-09-24 12:40 | Emergency (ER) | payer OTHER, MEDICARE ==
--- NOTE | 2018-09-24 12:58 | EDPHY ---
H & P Stated Complaint: c/o ongoing cough x 2-3 weeks, pt says completed abx regimen from pcp Time Seen by Provider: 09/24/18 12:58 HPI/ROS: CHIEF COMPLAINT: Chronic cough HISTORY OF PRESENT ILLNESS: The patient presents to the ED with a 2-3 week history of a productive cough. The patient did take a course of azithromycin which she finished last Sunday. He has had no improvement of his symptoms since that time. The patient denies any fever. He reports mild dyspnea on exertion. The patient denies any asymmetric calf pain or swelling. He denies pleuritic chest pain. Past medical history is significant for recent abdominal aortic aneurysm stenting and bladder tumor resection. The patient denies any acute headache, numbness or weakness. He has no complaints of diarrhea or vomiting. The patient has no acute urinary complaints. REVIEW OF SYSTEMS: A comprehensive 10 point review of systems is otherwise negative aside from elements mentioned in the history of present illness. Source: Patient - Personal History Tetanus Vaccine Date: unsure - Medical/Surgical History Hx Asthma: No Hx Chronic Respiratory Disease: Yes Hx Diabetes: No Hx Cardiac Disease: Yes Hx Renal Disease: No Hx Cirrhosis: No Hx Alcoholism: No Hx HIV/AIDS: No Hx Splenectomy or Spleen Trauma: No Other PMH: hyperlipidemia, hypertension, stents x4- mild emphysema, tonsillectomy, cardiac ablation, hernia repair, aaa repair, malignant bladder lesion - Family History Significant Family History: No pertinent family hx - Social History Smoking Status: Former smoker - Physical Exam Exam: General Appearance: Alert, no distress Eyes: Pupils equal and round no pallor or injection ENT, Mouth: Mucous membranes moist Respiratory: Rhonchorous breath sounds bilateral lung bases Cardiovascular: Regular rate and rhythm Gastrointestinal: Abdomen is soft and nontender, no masses, bowel sounds normal Neurological: 5/5 strength all 4 extremities Skin: Warm and dry, no rashes Musculoskeletal: Neck is supple nontender Extremities: 1+ bilateral edema, no calf tenderness appreciated Constitutional: Initial Vital Signs Temperature (C) 36.7 C 09/24/18 12:45 Heart Rate 81 09/24/18 12:45 Respiratory Rate 18 09/24/18 12:45 Blood Pressure 130/75 H 09/24/18 12:45 O2 Sat (%) 87 L 09/24/18 12:45 O2 Delivery Mode Room Air O2 (L/minute) 1 Allergies/Adverse Reactions: shrimp Allergy (Verified 09/24/18 12:50) Hives Home Medications: Medication Instructions Recorded Rosuvastatin Calcium [Crestor 20mg 20 mg PO HS 10/27/11 (*)] Metoprolol Succinate 25 mg PO DAILY 06/18/16 Aspirin EC [Aspirin EC 81 mg (*)] 81 mg PO DAILY 08/12/18 Zolpidem Tartrate [Ambien 5MG (*)] 5 mg PO HS PRN 08/19/18 oxyCODONE/APAP 5/325 [Percocet 1 - 2 tab PO Q4 PRN #15 tab 08/23/18 5/325 (*)] Cephalexin [Keflex (RX)] 500 mg PO TID #30 cap 08/25/18 Albuterol [Ventolin Hfa Inhaler] 2 puffs IH QID PRN #1 mdi 09/24/18 predniSONE [prednisone 20mg (RX)] 3 tab PO DAILY #15 tab 09/24/18 Medical Decision Making - Diagnostics Imaging Results: Imaging Impressions Chest X-Ray 09/24/18 12:58 Impression: 1. Mild peribronchial thickening in the perihilar region bilaterally. Findings are nonspecific but can be seen with bronchitis, viral process, or reactive airways disease. 2. Mild prominent interstitial markings at the lung bases probably related to underlying chronic interstitial lung disease and fibrotic change along with some bronchiectasis. Interstitial infiltrate is felt to be possible but less likely. 3. Moderate prominence of the pulmonary vasculature centrally. Consider pulmonary hypertension. ED Course/Re-evaluation: Patient presents the emergency department with a progressive cough which is not improved with antibiotics. The patient was noted to be 89% on room air at the time of arrival. He is in no acute respiratory distress. He is afebrile. Chest x-ray demonstrates interstitial lung disease without evidence of pneumonia. The patient did receive prednisone 60 mg orally and an albuterol breathing treatment. Re-evaluated the patient at 2:15 p.m.: Patient's hypoxemia resolved after neb. The patient is comfortable going home. He was offered admission to the hospital and declined. The patient will be given a prescription for prednisone 60 mg daily for 5 days and albuterol. He is discharged home with customary aftercare instructions and return precautions. Differential Diagnosis: Differential diagnosis considered includes asthma, bronchitis, pneumonia - Data Points Medications Given: Discontinued Medications Albuterol/Ipratropium (Duoneb) 3 ml IH EDNOW ONE Stop: 09/24/18 14:11 Last Admin: 09/24/18 14:13 Dose: 3 ml Prednisone (Prednisone) 60 mg PO EDNOW ONE Stop: 09/24/18 14:11 Last Admin: 09/24/18 14:13 Dose: 60 mg Departure - Departure Disposition: Home, Routine, Self-Care Clinical Impression: Acute bronchitis Condition: Good Instructions: Acute Bronchitis (ED) Additional Instructions: 1. Please take prednisone as directed for next 5 days. 2. Please use albuterol inhaler up to every 2-4 hours as needed for cough and shortness of breath. Referrals: Nancy Enrique MD [Primary Care Provider] - As per Instructions Prescriptions: Albuterol [Ventolin Hfa Inhaler] 2 puffs IH QID PRN #1 mdi PRN Reason: for shortness of breath predniSONE [prednisone 20mg (RX)] 3 tab PO DAILY #15 tab
[2018-09-24] MEDS ORDERED: predniSONE 20 MG TAB ONE (14:08)
[2018-09-24] MEDS ORDERED: IPRATROPIUM/ALBUTEROL 3 ML DEYVIAL ONE (14:08)
[2018-09-24] MEDS ORDERED: predniSONE 20 MG TAB PO ONE (14:10)
[2018-09-24] MEDS ORDERED: IPRATROPIUM/ALBUTEROL 3 ML DEYVIAL IH ONE (14:10)
[2018-09-24 14:40] VITALS: BP 121/66
== END 2018-09-24 14:40 | disposition home or self-care (01) ==
DX: J20.9 Acute bronchitis, unspecified (principal); I10 Essential (primary) hypertension; E78.5 Hyperlipidemia, unspecified; Z95.5 Presence of coronary angioplasty implant and graft
CPT/HCPCS: 71046; 99284; J7512

== ENCOUNTER → 2018-10-04 | Outpatient (CLI) | payer OTHER, MEDICARE | LOC: FIMAGING 11:22 ==